=== PATIENT | male | born 1950 | race Caucasian/White ===

== ENCOUNTER 2016-09-16 04:31 | Observation (INO) | payer SELFPAY ==
[~2016-09-16] VITALS: Ht 177.8 cm; Wt 87.5 kg
[2016-09-16] VITALS (9 sets, daily range): BP systolic 94–139; BP diastolic 58–71
[2016-09-16 04:51] LABS: BASO % 0 % (0-3); EOS % 2 % (0-3); HEMATOCRIT 43.9 % (39.0-53.0); HEMOGLOBIN 14.8 g/dL (13.0-17.5); LYMPH # 2.3 x10^3/uL (1.0-4.8); LYMPH % 25 % (24-48); MEAN CORPUSCULAR HEMOGLOBIN 31 pg (25-35); MEAN CORPUSCULAR HGB CONC 34 g/dL (31-37); MEAN CORPUSCULAR VOLUME 91 fL (79-100); MONO % 7 % (0-9); NEUT % 66 % (31-73); PLATELET COUNT 149 x10^3/uL (140-400); RED BLOOD COUNT 4.86 x10^6/uL (4.30-5.70); RED CELL DISTRIBUTION WIDTH 14.7 % (11.5-14.5); WHITE BLOOD COUNT 9.2 x10^3/uL (4.0-11.0)
[2016-09-16] MEDS ORDERED: dilTIAZem IV PUSH 25 MG/5 ML VIAL ONE (04:52)
--- NOTE | 2016-09-16 04:59 | PHYS DOC ---
Past Medical History Past Medical History: Diabetes-Type II, High Cholesterol, Hypertension Past Surgical History: Cholecystectomy, Other Additional Past Surgical Histo: back, Right knee, left foot Alcohol Use: Occasionally Drug Use: None Adult General Chief Complaint Chief Complaint: Palpitations HPI HPI 65 yo M presenting to the ED with palpitations that started about an hour ago. He reports no chest pain but feels a funny heartbeat. He denies shortness of breath or abdominal pain. It happened while he was watching TV. Location chest. Duration constant. No alleviating or exacerbating factors present. Nonradiating. Review of systems is negative for abdominal pain nausea vomiting fevers chills. All other review of systems is negative unless otherwise noted in history of present illness. ED course: 65-year-old male presenting to the emergency department today with palpitations. Triage vital signs showed the patient to have a heart rate around 140. EKG shows A. fib with RVR. Otherwise axis is mildly leftward ST segments are congruent. Not consistent with ACS. Reviewed by myself. Chest x-ray obtained.Chest x-ray reviewed by myself shows no obvious infiltrate or pneumothorax present. No obvious acute cardiopulmonary process present. Blood work obtained. The patient was then admitted to our cardiovascular care unit for IV rate controlling medications and cardiac consultation. Review of Systems Review of Systems SEE ABOVE. Current Medications Current Medications Current Medications Medications (Trade) Dose Ordered Sig/Linda Start Time Stop Time Status Last Admin Dose Admin Aspirin (Children'S Aspirin) 324 mg 1X ONCE 09/16/16 05:00 09/16/16 05:01 DC 09/16/16 04:53 324 MG Diltiazem HCl (Cardizem) 25 mg STK-MED ONCE 09/16/16 04:52 09/16/16 04:53 DC Diltiazem HCl 125 mg/Dextrose 125 ml @ 0 mls/hr CONT PRN 09/16/16 05:00 09/16/16 05:07 5 MLS/HR Insulin Human Regular (NovoLIN R VIAL) 5 unit 1X ONCE 09/16/16 06:00 09/16/16 06:01 Allergies Allergies Allergies Coded Allergies Type Severity Reaction Last Updated Verified Penicillins Allergy Intermediate 09/16/16 Yes Physical Exam Physical Exam SEE ABOVE Constitutional: Well developed, well nourished, no acute distress, non-toxic appearance. [] HENT: Normocephalic, atraumatic, bilateral external ears normal, oropharynx moist, no oral exudates, nose normal. [] Eyes: PERRLA, EOMI, conjunctiva normal, no discharge. [] Neck: Normal range of motion, no tenderness, supple, no stridor. [] Cardiovascular:tachy heart rate w/ regular rhythm, no murmur [] Lungs & Thorax: Bilateral breath sounds clear to auscultation [] Abdomen: Bowel sounds normal, soft, no tenderness, no masses, no pulsatile masses. [] Skin: Warm, dry, no erythema, no rash. [] Back: No tenderness, no CVA tenderness. [] Extremities: No tenderness, no cyanosis, no clubbing, ROM intact, no edema. [] Neurologic: Alert and oriented X 3, normal motor function, normal sensory function, no focal deficits noted. [] Psychologic: Affect normal, judgement normal, mood normal. [] Current Patient Data Vital Signs Vital Signs Date Time Temp Pulse Resp B/P (MAP) Pulse Ox O2 Delivery O2 Flow Rate FiO2 09/16/16 05:00 124 18 127/73 (91) 94 Nasal Cannula 2.0 09/16/16 04:43 97.8 97.8 Lab Values Laboratory Tests Test 09/16/16 04:40 White Blood Count 9.2 x10^3/uL (4.0-11.0) Red Blood Count 4.86 x10^6/uL (4.30-5.70) Hemoglobin 14.8 g/dL (13.0-17.5) Hematocrit 43.9 % (39.0-53.0) Mean Corpuscular Volume 91 fL (79-100) Mean Corpuscular Hemoglobin 31 pg (25-35) Mean Corpuscular Hemoglobin Concent 34 g/dL (31-37) Red Cell Distribution Width 14.7 % (11.5-14.5) H Platelet Count 149 x10^3/uL (140-400) Neutrophils (%) (Auto) 66 % (31-73) Lymphocytes (%) (Auto) 25 % (24-48) Monocytes (%) (Auto) 7 % (0-9) Eosinophils (%) (Auto) 2 % (0-3) Basophils (%) (Auto) 0 % (0-3) Neutrophils # (Auto) 6.1 x10^3uL (1.8-7.7) Lymphocytes # (Auto) 2.3 x10^3/uL (1.0-4.8) Monocytes # (Auto) 0.6 x10^3/uL (0.0-1.1) Eosinophils # (Auto) 0.2 x10^3/uL (0.0-0.7) Basophils # (Auto) 0.0 x10^3/uL (0.0-0.2) Sodium Level 142 mmol/L (136-145) Potassium Level 3.5 mmol/L (3.5-5.1) Chloride Level 104 mmol/L (98-107) Carbon Dioxide Level 27 mmol/L (21-32) Anion Gap 11 (6-14) Blood Urea Nitrogen 13 mg/dL (8-26) Creatinine 0.8 mg/dL (0.7-1.3) Estimated GFR (Cockcroft-Gault) 97.3 Glucose Level 316 mg/dL (70-99) H Calcium Level 9.8 mg/dL (8.5-10.1) Total Bilirubin 0.4 mg/dL (0.2-1.0) Direct Bilirubin 0.1 mg/dL (0.0-0.2) Aspartate Amino Transferase (AST) 15 U/L (15-37) Alanine Aminotransferase (ALT) 27 U/L (16-63) Alkaline Phosphatase 137 U/L (46-116) H Troponin I Quantitative < 0.017 ng/mL (0.000-0.055) XC-Qfl-D-Type Natriuretic Peptide 134 pg/mL (0-124) H Total Protein 7.6 g/dL (6.4-8.2) Albumin 4.0 g/dL (3.4-5.0) Lipase 137 U/L (73-393) Laboratory Tests 09/16/16 04:40 Laboratory Tests 09/16/16 04:40 EKG EKG [] Radiology/Procedures Radiology/Procedures [] Course & Med Decision Making Course & Med Decision Making Pertinent Labs and Imaging studies reviewed. (See chart for details) [] Dragon Disclaimer Dragon Disclaimer This electronic medical record was generated, in whole or in part, using a voice recognition dictation system. Departure Departure Impression: Primary Impression: Atrial fibrillation with RVR Disposition: ADMITTED INPATIENT Admitting Physician: Mathew Martinez Condition: STABLE FAZAL SURESH MD Sep 16, 2016 04:59
[2016-09-16] MEDS ORDERED: ASPIRIN CHEWABLE 81 MG TABLET. PO ONE (05:00)
[2016-09-16] MEDS ORDERED: dilTIAZem IV PUSH 25 MG/5 ML VIAL IVP ONE (05:00)
[2016-09-16 05:11] LABS: CALCIUM 9.8 mg/dL (8.5-10.1); CREATININE 0.8 mg/dL (0.7-1.3); GFR 97.3; POTASSIUM 3.5 mmol/L (3.5-5.1)
[2016-09-16] MEDS ORDERED: ATOR40TA59 PO (05:15)
[2016-09-16] MEDS ORDERED: LISI-334 PO (05:15)
[2016-09-16 05:16] LABS: DIRECT BILIRUBIN 0.1 mg/dL (0.0-0.2); TOTAL BILIRUBIN 0.4 mg/dL (0.2-1.0); TOTAL PROTEIN 7.6 g/dL (6.4-8.2)
[2016-09-16] MEDS ORDERED: GLIM2TAB2 PO (05:16)
[2016-09-16] MEDS ORDERED: AMLO10TA2 PO (05:17)
[2016-09-16] MEDS ORDERED: ALPR0.254 PO (05:17)
[2016-09-16] MEDS ORDERED: ISOS60TA2 PO (05:18)
[2016-09-16] MEDS ORDERED: ASPI81TA50 PO (05:36)
[2016-09-16] MEDS ORDERED: METF-620 PO (05:46)
[2016-09-16] MEDS ORDERED: INSULIN REGULAR 100 UNIT/ML 10ML VIAL. IV ONE (06:00)
--- NOTE | 2016-09-16 07:21 | EKG ---
[facility] [address] [place] [address] Test Date: 2016-09-16 Test Time: 04:38:23 Pat Name: HARDIK MANCILLA Department: Room: 205 1 Gender: M [employer]: : 1950 Requested By: FAZAL SURESH Order Number: [id number] Reading MD: Toro Mojica Measurements Intervals [place] Rate: 145 P: [place]: QRS: 14 QRSD: 68 T: 103 QT: 290 QTc: 453 Interpretive Statements IRREGULAR RHYTHM, NO P-WAVE FOUND RVR ST & T ABNORMALITY, CONSIDER ANTERIOR ISCHEMIA OR LEFT VENTRICULAR STRAIN HIGH LATERAL ISCHEMIA OR LEFT VENTRICULAR STRAIN ABNORMAL ECG RI6.01 No previous ECG available for comparison Electronically Signed On 09-16-2016 15:56:09 CDT by Toro Mojica
--- NOTE | 2016-09-16 07:33 | RAD ---
AP chest radiograph 09/16/2016 Clinical indication: Chest pain. Comparison: None. Findings: Cardiac and mediastinal silhouettes are within normal limits. No pleural effusion, pneumothorax or focal consolidation. Impression: No acute cardiopulmonary abnormality.
[2016-09-16] MEDS ORDERED: ERGO500027 PO (08:28)
--- NOTE | 2016-09-16 10:53 | PDOC2 ---
CARDIAC CONSULT DATE OF CONSULT Date of Consult DATE: 09/16/16 TIME: 10:47 REASON FOR CONSULT Reason for Consult: afib rvr REFERRING PHYSICIAN Referring Physician: cindy SOURCE Source: Chart review, Patient HISTORY OF PRESENT ILLNESS HISTORY OF PRESENT ILLNESS This is a pleasant 65 yo male admitted for complains of palpitations. Reports that as he was watching TV last night his heart started skipping then it started going fast. He told his to check it out and she confirmed it. He took NTG thinking that this may help but it did not. Reports no SOA, dizziness. Upon admission he was noted with AFIB RVR. No prior hx of CAD, arrhythmias. He was started on cardizem drip and his HR is now controlled. No hx CAD, VTA, Fall, injury, bleeding history PAST MEDICAL HISTORY Cardiovascular: HTN, Hyperlipidemia Pulmonary: No pertinent hx CENTRAL NERVOUS SYSTEM: Other (No pertinent history) GI: No pertinent hx Heme/Onc: No pertinent hx Hepatobiliary: No pertinent hx Psych: Anxiety Musculoskeletal: Osteoarthritis Rheumatologic: No pertinent hx, Rheumatoid arthritis Infectious disease: No pertinent hx ENT: No pertinent hx Renal/: No pertinent hx Endocrine: Diabetes (2) Dermatology: No pertinent hx PAST SURGICAL HISTORY Past Surgical History: Cholecystectomy, Hernia Repair (umbilical and inguinal) , Other (back surgery x2, right knee surgeries; right toe surgery ) FAMILY HISTORY Family History: Diabetes (father), Hypertension (father) SOCIAL HISTORY Smoke: 1 pack per day (>40 yrs) ALCOHOL: none Drugs: None Lives: with Family CURRENT MEDICATIONS CURRENT MEDICATIONS Current Medications Medications (Trade) Dose Ordered Sig/Linda Route PRN Reason Start Time Stop Time Status Last Admin Dose Admin Aspirin (Children'S Aspirin) 324 mg 1X ONCE PO 09/16/16 05:00 09/16/16 05:01 DC 09/16/16 04:53 Diltiazem HCl (Cardizem) 20 mg 1X ONCE IVP 09/16/16 05:00 09/16/16 05:01 DC 09/16/16 04:55 Diltiazem HCl 125 mg/Dextrose 125 ml @ 0 mls/hr CONT PRN IV SEE I/O RECORD 09/16/16 05:00 09/16/16 05:07 Insulin Human Regular (NovoLIN R VIAL) 5 unit 1X ONCE IV 09/16/16 06:00 09/16/16 06:01 DC 09/16/16 05:41 ALLERGIES ALLERGIES: Coded Allergies: Penicillins (Verified Allergy, Intermediate, 09/16/16) ROS Review of System 14 point ROS evaluated with pertinent positives noted per HPI PHYSICAL EXAM General: Alert, Oriented X3, Cooperative, No acute distress HEENT: Atraumatic, Mucous membr. moist/pink Lungs: Clear to auscultation, Normal air movement Heart: Normal S1, Normal S2, Other (2/6 systolic murmur to LLS border; AFIB) Abdomen: Soft, No tenderness Extremities: No cyanosis, No edema Skin: No breakdown, No significant lesion Neuro: Normal speech, Sensation intact Psych/Mental Status: Mental status NL, Mood NL MUSCULOSKELETAL: Osteoarthritic changes both hands VITALS VITALS Vital Signs Date Time Temp Pulse Resp B/P (MAP) Pulse Ox O2 Delivery O2 Flow Rate FiO2 09/16/16 07:40 98.1 105 20 120/65 (83) 96 Nasal Cannula 98.1 09/16/16 06:45 2.0 LABS Lab: Laboratory Tests Test 09/16/16 04:40 09/16/16 08:07 White Blood Count 9.2 x10^3/uL (4.0-11.0) Red Blood Count 4.86 x10^6/uL (4.30-5.70) Hemoglobin 14.8 g/dL (13.0-17.5) Hematocrit 43.9 % (39.0-53.0) Mean Corpuscular Volume 91 fL (79-100) Mean Corpuscular Hemoglobin 31 pg (25-35) Mean Corpuscular Hemoglobin Concent 34 g/dL (31-37) Red Cell Distribution Width 14.7 % (11.5-14.5) Platelet Count 149 x10^3/uL (140-400) Neutrophils (%) (Auto) 66 % (31-73) Lymphocytes (%) (Auto) 25 % (24-48) Monocytes (%) (Auto) 7 % (0-9) Eosinophils (%) (Auto) 2 % (0-3) Basophils (%) (Auto) 0 % (0-3) Neutrophils # (Auto) 6.1 x10^3uL (1.8-7.7) Lymphocytes # (Auto) 2.3 x10^3/uL (1.0-4.8) Monocytes # (Auto) 0.6 x10^3/uL (0.0-1.1) Eosinophils # (Auto) 0.2 x10^3/uL (0.0-0.7) Basophils # (Auto) 0.0 x10^3/uL (0.0-0.2) Sodium Level 142 mmol/L (136-145) Potassium Level 3.5 mmol/L (3.5-5.1) Chloride Level 104 mmol/L (98-107) Carbon Dioxide Level 27 mmol/L (21-32) Anion Gap 11 (6-14) Blood Urea Nitrogen 13 mg/dL (8-26) Creatinine 0.8 mg/dL (0.7-1.3) Estimated GFR (Cockcroft-Gault) 97.3 Glucose Level 316 mg/dL (70-99) Calcium Level 9.8 mg/dL (8.5-10.1) Total Bilirubin 0.4 mg/dL (0.2-1.0) Direct Bilirubin 0.1 mg/dL (0.0-0.2) Aspartate Amino Transf (AST/SGOT) 15 U/L (15-37) Alanine Aminotransferase (ALT/SGPT) 27 U/L (16-63) Alkaline Phosphatase 137 U/L (46-116) Troponin I Quantitative < 0.017 ng/mL (0.000-0.055) TP-Drt-C-Type Natriuretic Peptide 134 pg/mL (0-124) Total Protein 7.6 g/dL (6.4-8.2) Albumin 4.0 g/dL (3.4-5.0) Lipase 137 U/L (73-393) Glucose (Fingerstick) 297 mg/dL (70-99) ASSESSMENT/PLAN ASSESSMENT/PLAN 1. New onset AFIB with RVR 2. HTN: low. Apparently pt took all his home meds this am 3. HLP 4. DM2: uncontrolled currently Recommendations 1. TTE, TSH, lipid panel, Mg. 2. DC cardizem drip and will start 180 mg CD po daily tomorrow. Continue with home metoprolol. DC imdur 3. Smoking cessation 4. Start on eliquis (will provide discount cards) DC home norvasc. Possible home tomorrow. 5. Watch for bradycardic episode. 6. Continue with secondary prevention 7. Will arrange for follow up in 3-4 weeks in which at that time he will have his insurance and will arrange for outpt cardioversion. 8. Home BP monitoring. Problems: JADEN PAREKH APRN Sep 16, 2016 10:53
[2016-09-16 11:18] LABS: CHOLESTEROL 167 mg/dL (0-200); HDLC 22 mg/dL (40-60); MAGNESIUM 1.6 mg/dL (1.8-2.4); NON-HDL CHOLESTEROL 145 mg/dL (0-129); TRIGLYCERIDES 593 mg/dL (0-150)
[2016-09-16 11:19] LABS: CHOLESTEROL/HDL RATIO 7.6
[2016-09-16] MEDS ORDERED: OXYC30TA PO (11:35)
[2016-09-16] MEDS ORDERED: HYDR12.53 PO (11:35)
[2016-09-16] MEDS ORDERED: METO100T2 PO (11:35)
[2016-09-16] MEDS ORDERED: ANTI-COAG MONITOR BY PHARMACY. MC PRN (11:45)
[2016-09-16] MEDS: ALPRAZolam 0.25 MG TABLET PO SCH ×2 (12:00→21:00)
--- NOTE | 2016-09-16 12:42 | HP ---
ADMIT DATE: 09/16/2016 CHIEF COMPLAINT: Palpitations. HISTORY OF PRESENT ILLNESS AND HOSPITAL COURSE: This patient is a 65-year-old /____ man, who came to the Emergency Room when he noted palpitations. The patient denied chest pain, shortness of breath, diaphoresis, nausea or vomiting. This came on while at rest watching TV and ____ came to the Emergency Room. During Emergency Room evaluation, he was found to have atrial fibrillation with rapid ventricular response with heart rate of 124. He had a negative cardiac workup and only abnormal lab finding was blood sugar of 316. The patient was placed on a Cardizem drip and rate was controlled and was admitted for rule out protocol and Cardiology consultation. PAST MEDICAL HISTORY: 1. Type 2 diabetes. 2. Hypertension. 3. Hyperlipidemia. 4. Rheumatoid arthritis. 5. Osteoarthritis. 6. Chronic low back and knee pain. MEDICATIONS: On admission are metoprolol 100 b.i.d. Norvasc 10 mg b.i.d., hydrochlorothiazide 12.5 mg every day, lisinopril 20 mg b.i.d., Imdur 60 mg daily, Amaryl 2 mg daily, metformin 1000 b.i.d., Lipitor 40 mg at bedtime, oxycodone 30 mg immediate release q.6 hours p.r.n., Xanax 0.25 mg b.i.d., and vitamin D 50,000 units one p.o. q week. PAST SURGICAL HISTORY: Significant for back surgery x 2, knee surgery x 3, right inguinal hernia x 2, umbilical hernia x 1, cholecystectomy and great toe on the right foot surgery. FAMILY HISTORY: Mother with cancer. His father with complications of diabetes and hypertension. He has a brother who is also . He has strong family history for diabetes and family history of prostate cancer. SOCIAL HISTORY: The patient continues to smoke at least a pack per day for over 44 years. The patient does not use alcohol. The patient is and lives with his spouse. 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 ALLERGIES: THE PATIENT HAS ALLERGIES TO PENICILLIN, WHICH CONSISTENT RASH. REVIEW OF SYSTEMS: The patient denies nausea, vomiting, chest pain, shortness of breath, headaches, cough, congestion, fever or diarrhea. The patient does have palpitations, which ____ the last 24 hours. ASSESSMENT: 1. New onset atrial fibrillation with rapid ventricular response. 2. Suspected underlying chronic obstructive pulmonary disease due to long history of smoking. 3. Type 2 diabetes. 4. Severe hypertension. 5. Hyperlipidemia. 6. Rheumatoid arthritis. 7. Chronic pain with osteoarthritis of the knee and low back. The patient is not obtained regular medical care due to lack of insurance. PLAN: To proceed with Tunde daniels. Cardiology consultation including echocardiogram began anticoagulation and adjust medications as needed and continue to follow the patient throughout hospital stay. GLEN BLACKBURN MD DR: FEDE/ugo JOB#: [id number] / [id number]
[2016-09-16] MEDS ORDERED: MAGNESIUM SULFATE 2GM 50 ML IV ONE (13:00)
--- NOTE | 2016-09-16 13:29 | CARD ---
APPROVED REPORT EXAM: Two-dimensional and M-mode echocardiogram with Doppler and color Doppler. Other Information Quality : Average Rhythm : Atrial Fibrillation INDICATION Atrial Fibrillation 2D DIMENSIONS RVDd3.0 (2.9-3.5cm)Left Atrium(2D)3.5 (1.6-4.0cm) IVSd1.2 (0.7-1.1cm)Aortic Root(2D)2.9 (2.0-3.7cm) LVDd4.2 (3.9-5.9cm)LVOT Diameter2.3 (1.8-2.4cm) PWd1.2 (0.7-1.1cm)LVDs2.6 (2.5-4.0cm) FS (%) 28.7 %SV55.0 ml LVEF(%)59.4 (>50%) Aortic Valve AoV Peak Robert.136.4cm/sAoV VTI22.8cm AO Peak GR.7.4mmHgLVOT Peak Robert.119.0cm/s LVOT VTI 20.37cmAO Mean GR.4mmHg Mitral Valve MV DECEL [id number] MVA (PHT)3.59cm2 Pulmonary Valve PV Peak Mmwtkuac06.6cm/sPV Peak Grad.4mmHg RVOT VTI20.2cm Tricuspid Valve TR P. Ophaxitu595zo/sRAP [id number] TR Peak Gr.84ddCmYQSV34sfWd Pulmonary Vein S1 Nxpbcdps34.3cm/s LEFT VENTRICLE The left ventricle is normal size. There is borderline concentric left ventricular hypertrophy. Left ventricle systolic function is normal. The Ejection Fraction is 55-60%. There is normal LV segmental wall motion. Unable to estimate PA pressure. RIGHT VENTRICLE The right ventricle is normal size. The right ventricular systolic function is normal. ATRIA The left atrium size is normal. The right atrium size is normal. The interatrial septum is intact wit h no evidence for an atrial septal defect or patent foramen ovale as noted on 2-D or Doppler imaging. AORTIC VALVE The aortic valve is mildly calcified. The aortic valve is trileaflet. Doppler and Color Flow revealed no significant aortic regurgitation. There is no significant aortic valvular stenosis. MITRAL VALVE Mitral annular calcification is mild. There is no mitral valve stenosis. Doppler and Color Flow revea led trace to mild mitral regurgitation. TRICUSPID VALVE The tricuspid valve is normal in structure and function. Doppler and Color Flow revealed mild tricusp id regurgitation. The PA pressure was estimated at 31 mmHg. There is no tricuspid valve stenosis. PULMONIC VALVE The pulmonic valve is not well visualized. Doppler and Color Flow revealed no pulmonic valvular regur gitation. There is no pulmonic valvular stenosis. GREAT VESSELS The aortic root is normal in size. Normal pulmonary venous flow (Doppler). The IVC is normal in size and collapses >50% with inspiration. PERICARDIAL EFFUSION There is no evidence of significant pericardial effusion. Critical Notification Critical Value: No <Conclusion> Left ventricle systolic function is normal. The Ejection Fraction is 55-60%. There is normal LV segmental wall motion. Trace to mild mitral regurgitation. Mild tricuspid regurgitation. The PA pressure was estimated at 31 mmHg. There is no evidence of significant pericardial effusion.
[2016-09-16] MEDS: APIXABAN 5 MG TABLET. PO SCH ×2 (14:41→21:11)
[2016-09-16] MEDS: INSULIN ASPART 300 UNITS/3 ML INSULN.PEN SQ SCH ×2 (16:30→21:00)
[2016-09-16] MEDS: ASPIRIN ENTERIC COATED 81 MG TABLET.DR. PO SCH (21:11)
[2016-09-16] MEDS: ATORVASTATIN CALCIUM 40 MG TABLET. PO SCH (21:12)
[2016-09-16] MEDS: METOPROLOL TART IMMED RELEASE 50 MG TABLET. PO SCH (21:15)
[2016-09-17] VITALS (7 sets, daily range): BP systolic 97–143; BP diastolic 62–85
--- NOTE | 2016-09-17 01:37 | ACF ---
Admission Forms Criteria ATRIAL FIBRILLATION Clinical Indications for Admission to Inpatient Care (Place 'X' for any and all applicable criteria): Admission indicated for ANY ONE of the following(1)(2)(3)(4)(5) : [ ]I. Myocardial ischemia [ ]II. Dyspnea or hypoxemia [ ]III. Hemodynamic instability [ ]IV. Heart failure (e.g., pulmonary edema) (7) [X]V. New-onset (less than 48 hours) atrial fibrillation with high risk for causing complications secondary to comorbidities (eg, symptomatic heart failure ) [ ]. Altered mental status [ ]VII. Syncope [ ]VIII. Patient has implantable cardioverter defibrillator that has fired more than once within past 24hr or needs immediate adjustment of settings that cannot be done other than in inpatient setting. (8) [ ]IX. Suspected accessory pathway (e.g., Pynnj-Juzkukmge-Yorhz syndrome) on ECG [ ]X. Recent systemic thromboembolism (eg, stroke) [ ]XI. Medication toxicity (e.g., digitalis) causing arrhythmia(9) [ ]XII. Underlying medical condition that necessitates inpatient care (e.g., thyrotoxicosis, pneumonia) (10) [ ]XIII. Continuous ECG monitoring is required for condition causing arrhythmia (e.g., severe hyperkalemia, hypokalemia, acid-base disturbance).(11)(12)(13) [ ]XIV. Initiation of antiarrhythmic drug therapy is needed in patient at high risk of adverse effects as indicated by ANY ONE of the following: [ ]a) Significant structural heart disease (e.g., reduced ejection fraction, congenital heart disease, valvular heart disease) [ ]b) Prolonged QT interval [ ]c) Underlying sinus node or atrioventricular conduction disturbances [ ]d) Need for treatment with antiarrhythmic drugs that have significant proarrhythmic potential (e.g., dofetilide, sotalol, procainamide) [ ]e) Patient whose sinus rhythm has never been observed on ECG [ ]XV. Intolerable symptoms despite optimal outpatient treatment [ ]XVI. Elective or urgent cardioversion that cannot be performed on outpatient basis or during observation care. [A] (Use also Atrial Fibrillation: Observation Care ) as appropriate.(14) [ ]XVII.Contraindications and/or Inappropriate clinical situations for Observational Care in patients with Atrial Fibrillation, when ANY ONE of the following is required: [ ]a) Patient with High risk of cardiac embolism (e.g, patients with previous cardiac embolism, LVEF < 40%, age >75 and patients with prosthetic valve) 18 [ ]b) Patient with Moderate risk including DM patient, CAD and patient aged 65-75 18 [ ]c) Patient with any change in cardiac biomarker especially troponin should be managed as high risk in an inpatient setting 19 [ ]d) Physician judgement irrespective of ECG and other diagnostic findings 20 [ ]XVIII.General contraindications and/or Inappropriate clinical situations for Observational Care in patients with Atrial Fibrillation, when ANY ONE of the following is required: [ ]a) Prediction of prolongation of LOS based on ANY ONE of the following may be considered as a contraindication for observational care 2, 3, 4, 5, 6, 7, 8, 9, 10, 11 [ ]i) Age > 65 yrs. [ ]ii) Patient arriving by ambulance [ ]iii) Patient with high acuity [ ]iv) Patient requiring vital sign monitoring [ ]v) Patient on IV medication [ ]b) Systolic blood pressures 180mmHg 3,12 [ ]c) Patient with altered mental status including delirium and other alteration of consciousness3 [ ]d) Patient whose discharge disposition will be to a nursing home home or rehabilitation home should not be managed in Emergency Department Observation Unit. CMS rule requires 3 days hospital stay before such placement.3,13 [ ]e) Patient with failure to thrive due to broad array of etiologies 3,16,17 [ ]f) Inability to ambulate 3,14 Extended stay beyond goal length of stay may be needed for (1)(25)(26): [ ]a) Unstable comorbidities [ ]b) Persistently uncontrolled atrial fibrillation or other arrhythmias [ ]c) Acute thromboembolic event (e.g., stroke, limb ischemia) [ ]d) Need for inpatient attainment of full anticoagulation The original [employer] content created by [employer] has been revised. The portions of the content which have been revised are identified through the use of italic text or in bold, and [facility] [employer] has neither reviewed nor approved the modified material. All other unmodified content is copyright [employer]. Please see references footnoted in the original [facility] edition 2016 Admission Criteria Met?: Yes SAUL ROME Sep 17, 2016 01:37
[2016-09-17] MEDS: INSULIN ASPART 300 UNITS/3 ML INSULN.PEN SQ SCH ×4 (07:30→21:00)
[2016-09-17] MEDS ORDERED: LISI-334 PO (08:46)
[2016-09-17] MEDS ORDERED: APIX5TAB PO (08:46)
[2016-09-17] MEDS ORDERED: DILT180C73 PO (08:46)
[2016-09-17] MEDS ORDERED: GLIM2TAB2 PO (08:46)
[2016-09-17] MEDS ORDERED: MAGN400T22 PO (08:46)
[2016-09-17] MEDS: APIXABAN 5 MG TABLET. PO SCH ×2 (08:56→21:30)
[2016-09-17] MEDS: GLIMEPIRIDE 2 MG TABLET. PO SCH (08:57)
[2016-09-17] MEDS: ASPIRIN ENTERIC COATED 81 MG TABLET.DR. PO SCH ×2 (08:57→21:30)
[2016-09-17] MEDS ORDERED: ERGOCALCIFEROL (VITAMIN D2) 50,000 UNIT CAPSULE. PO SCH (09:00)
[2016-09-17] MEDS: ALPRAZolam 0.25 MG TABLET PO SCH ×2 (09:00→21:00)
[2016-09-17] MEDS ORDERED: DIGOXIN IV 500 MCG/2 ML AMPUL. IV ONE (09:30)
[2016-09-17] MEDS: METOPROLOL TART IMMED RELEASE 50 MG TABLET. PO SCH ×2 (09:35→21:31)
[2016-09-17] MEDS: MAGNESIUM OXIDE 400 MG TABLET PO SCH (09:35)
--- NOTE | 2016-09-17 09:43 | PDOC ---
CARDIO Progress Notes Date and Time Date of Service 09/17/2016 Time of Evaluation 0920 Subjective Subjective: No Chest Pain, No shortness of breath, No Palpitations, No Dizziness Vitals Vitals Vital Signs Date Time Temp Pulse Resp B/P (MAP) Pulse Ox O2 Delivery O2 Flow Rate FiO2 09/17/16 08:57 118 120/84 09/17/16 07:00 97.4 19 92 Room Air 97.4 Weight Weight [ ] Input and Output Intake and Output Intake and Output 09/17/16 07:00 Intake Total 540 ml Balance 540 ml Intake Oral 540 ml # Voids 3 Laboratory Labs Laboratory Tests Test 09/16/16 11:53 09/16/16 17:34 09/16/16 20:42 09/17/16 07:37 Glucose (Fingerstick) 195 mg/dL (70-99) 173 mg/dL (70-99) 241 mg/dL (70-99) 226 mg/dL (70-99) Physical Exam HEENT: Neck Supple W Full Motion Chest: Symmetric Heart: S1S2, irregularly irregular Abdomen: Soft N/T Extremities: No Calf Tenderness Neurology: alert, oriented, follow commands Assessment Assessment 1. New onset AFIB: was improved but overnight RVR again. 2. HTN: controlled 3. HLP: uncontrolled, TG 500s 4. DM2: uncontrolled, refusing PRN insulin Recommendations 1. TTE with normal EF and LV systolic function. 2. Continue with home metoprolol and start po cardizem CD 180 mg today. Dig IV x1. 3. Smoking cessation 4. Start on eliquis (will provide 30 day free card and 4 wk sample given) If HR is well controlled this afternoon then may DC 5. Continue statin and will add fenofibrate. Optimize BG control per PCP. Dietitian consult 6. Will arrange for follow up in 3-4 weeks in which at that time he will have his insurance and will arrange for outpt cardioversion. 7. Home BP monitoring 8. BMP, Mg today JADEN PAREKH APRN Sep 17, 2016 09:42
[2016-09-17] MEDS ORDERED: NITROGLYCERIN SUBLINGUAL 0.4 MG BOTTLE OF 25. SL ONE (10:59)
[2016-09-17] MEDS ORDERED: ASPIRIN CHEWABLE 81 MG TABLET. PO ONE (11:00)
[2016-09-17] MEDS: NITROGLYCERIN SUBLINGUAL 0.4 MG BOTTLE OF 25. SL PRN ×2 (11:04→12:37)
[2016-09-17] MEDS: LISINOPRIL 20 MG TABLET PO SCH (11:13)
[2016-09-17 11:21] LABS: CALCIUM 9.3 mg/dL (8.5-10.1); CREATININE 0.7 mg/dL (0.7-1.3); GFR 113.5; MAGNESIUM 1.8 mg/dL (1.8-2.4)
--- NOTE | 2016-09-17 11:34 | EKG ---
[facility] [address] [place] [address] Test Date: 2016-09-17 Test Time: 11:31:19 Pat Name: HARDIK MANCILLA Department: Room: 205 1 Gender: M [employer] Consultant: CHERRI : 1950 Requested By: JADEN PAREKH Order Number: [id number] Reading MD: Ang Cohen Measurements Intervals [place] Rate: 119 P: [place]: QRS: 26 QRSD: 72 T: 12 QT: 310 QTc: 437 Interpretive Statements NON-SPECIFIC ST/T CHANGES ATRIAL FIBRILLATION WITH RVR Electronically Signed On 09-23-2016 15:42:24 CDT by Ang Cohen
--- NOTE | 2016-09-17 13:14 | PDOC ---
PROGRESS NOTES Subjective Subjective Patient's condition improved during early hospitalization this morning patient began having recurrent A. fib with rapid ventricular response now associated with chest pain. Patient was taken off nitroglycerin due to hypotension and now has chest pain leading to the concerned that there may be coronary artery disease therefore cardiology is continuing evaluation and may proceed with stress testing in the a.m. Objective Objective Vital Signs Date Time Temp Pulse Resp B/P (MAP) Pulse Ox O2 Delivery O2 Flow Rate FiO2 09/17/16 12:37 96 165/98 09/17/16 11:00 97.6 19 92 Room Air 97.6 09/16/16 06:45 2.0 Intake and Output 09/17/16 07:00 Intake Total 540 ml Balance 540 ml Intake Oral 540 ml # Voids 3 Physical Exam Abdomen: Normal bowel sounds Heart: Other (irregularly irregular) Extremities: No edema General: Alert Lungs: Clear to auscultation Assessment Assessment Problems Medical Problems: (1) Atrial fibrillation with RVR Status: Acute 1. New onset atrial fibrillation with rapid ventricular response. 2. Chest pain consistent with angina 3. Type 2 diabetes. 4. Severe hypertension. 5. Hyperlipidemia. 6. Rheumatoid arthritis. 7. Chronic pain with osteoarthritis of the knee and low back. 8. Suspected underlying chronic obstructive pulmonary disease due to long history of smoking. Plan Plan of Care Nitroglycerin restarted Treatment with digoxin started Possible stress test in a.m. Comment Review of Relevant I have reviewed the following items rodrigo (where applicable) has been applied. Labs Laboratory Tests Test 09/16/16 04:40 09/16/16 08:07 09/16/16 11:53 09/16/16 17:34 White Blood Count 9.2 x10^3/uL (4.0-11.0) Red Blood Count 4.86 x10^6/uL (4.30-5.70) Hemoglobin 14.8 g/dL (13.0-17.5) Hematocrit 43.9 % (39.0-53.0) Mean Corpuscular Volume 91 fL (79-100) Mean Corpuscular Hemoglobin 31 pg (25-35) Mean Corpuscular Hemoglobin Concent 34 g/dL (31-37) Red Cell Distribution Width 14.7 % (11.5-14.5) Platelet Count 149 x10^3/uL (140-400) Neutrophils (%) (Auto) 66 % (31-73) Lymphocytes (%) (Auto) 25 % (24-48) Monocytes (%) (Auto) 7 % (0-9) Eosinophils (%) (Auto) 2 % (0-3) Basophils (%) (Auto) 0 % (0-3) Neutrophils # (Auto) 6.1 x10^3uL (1.8-7.7) Lymphocytes # (Auto) 2.3 x10^3/uL (1.0-4.8) Monocytes # (Auto) 0.6 x10^3/uL (0.0-1.1) Eosinophils # (Auto) 0.2 x10^3/uL (0.0-0.7) Basophils # (Auto) 0.0 x10^3/uL (0.0-0.2) Sodium Level 142 mmol/L (136-145) Potassium Level 3.5 mmol/L (3.5-5.1) Chloride Level 104 mmol/L (98-107) Carbon Dioxide Level 27 mmol/L (21-32) Anion Gap 11 (6-14) Blood Urea Nitrogen 13 mg/dL (8-26) Creatinine 0.8 mg/dL (0.7-1.3) Estimated GFR (Cockcroft-Gault) 97.3 Glucose Level 316 mg/dL (70-99) Hemoglobin A1c 8.7 % (4.8-5.6) Calcium Level 9.8 mg/dL (8.5-10.1) Magnesium Level 1.6 mg/dL (1.8-2.4) Total Bilirubin 0.4 mg/dL (0.2-1.0) Direct Bilirubin 0.1 mg/dL (0.0-0.2) Aspartate Amino Transf (AST/SGOT) 15 U/L (15-37) Alanine Aminotransferase (ALT/SGPT) 27 U/L (16-63) Alkaline Phosphatase 137 U/L (46-116) Troponin I Quantitative < 0.017 ng/mL (0.000-0.055) OB-Dcu-E-Type Natriuretic Peptide 134 pg/mL (0-124) Total Protein 7.6 g/dL (6.4-8.2) Albumin 4.0 g/dL (3.4-5.0) Triglycerides Level 593 mg/dL (0-150) Cholesterol Level 167 mg/dL (0-200) LDL Cholesterol, Calculated mg/dL (0-100) VLDL Cholesterol, Calculated 119 mg/dL (0-40) Non-HDL Cholesterol Calculated 145 mg/dL (0-129) HDL Cholesterol 22 mg/dL (40-60) Cholesterol/HDL Ratio 7.6 Lipase 137 U/L (73-393) Thyroid Stimulating Hormone (TSH) 2.652 uIU/mL (0.358-3.74) Glucose (Fingerstick) 297 mg/dL (70-99) 195 mg/dL (70-99) 173 mg/dL (70-99) Test 09/16/16 20:42 09/17/16 07:37 09/17/16 10:50 09/17/16 11:10 Glucose (Fingerstick) 241 mg/dL (70-99) 226 mg/dL (70-99) 278 mg/dL (70-99) Sodium Level 138 mmol/L (136-145) Potassium Level 4.0 mmol/L (3.5-5.1) Chloride Level 102 mmol/L (98-107) Carbon Dioxide Level 25 mmol/L (21-32) Anion Gap 11 (6-14) Blood Urea Nitrogen 12 mg/dL (8-26) Creatinine 0.7 mg/dL (0.7-1.3) Estimated GFR (Cockcroft-Gault) 113.5 Glucose Level 308 mg/dL (70-99) Calcium Level 9.3 mg/dL (8.5-10.1) Magnesium Level 1.8 mg/dL (1.8-2.4) Troponin I Quantitative < 0.017 ng/mL (0.000-0.055) Laboratory Tests Test 09/16/16 17:34 09/16/16 20:42 09/17/16 07:37 09/17/16 10:50 Glucose (Fingerstick) 173 mg/dL (70-99) 241 mg/dL (70-99) 226 mg/dL (70-99) Sodium Level 138 mmol/L (136-145) Potassium Level 4.0 mmol/L (3.5-5.1) Chloride Level 102 mmol/L (98-107) Carbon Dioxide Level 25 mmol/L (21-32) Anion Gap 11 (6-14) Blood Urea Nitrogen 12 mg/dL (8-26) Creatinine 0.7 mg/dL (0.7-1.3) Estimated GFR (Cockcroft-Gault) 113.5 Glucose Level 308 mg/dL (70-99) Calcium Level 9.3 mg/dL (8.5-10.1) Magnesium Level 1.8 mg/dL (1.8-2.4) Troponin I Quantitative < 0.017 ng/mL (0.000-0.055) Test 09/17/16 11:10 Glucose (Fingerstick) 278 mg/dL (70-99) Medications Current Medications Aspirin (Children'S Aspirin) 324 mg 1X ONCE PO Last administered on 09/16/16 04:53; Start 09/16/16 at 05:00; Stop 09/16/16 at 05:01; Status DC Diltiazem HCl (Cardizem) 20 mg 1X ONCE IVP Last administered on 09/16/16 04:55 ; Start 09/16/16 at 05:00; Stop 09/16/16 at 05:01; Status DC Diltiazem HCl 125 mg/Dextrose 125 ml @ 0 mls/hr CONT PRN IV SEE I/O RECORD Last administered on 09/16/16 05:07; Start 09/16/16 at 05:00; Stop 09/16/16 at 11: 28; Status DC Diltiazem HCl (Cardizem) 25 mg STK-MED ONCE .ROUTE ; Start 09/16/16 at 04:52; Stop 09/16/16 at 04:53; Status DC Insulin Human Regular (NovoLIN R VIAL) 5 unit 1X ONCE IV Last administered on 09/16/16 05:41; Start 09/16/16 at 06:00; Stop 09/16/16 at 06:01; Status DC Apixaban (Eliquis) 5 mg BID PO Last administered on 09/17/16 08:56; Start at 12:00 Diltiazem HCl (Cardizem 24hr Cd) 180 mg DAILY PO Last administered on 09/17/16 08:57; Start 09/16/16 at 12:00 Info (Anti-Coagulation Monitoring By Pharmacy) 1 each PRN DAILY PRN MC SEE COMMENTS Last administered on 09/17/16 08:38; Start 09/16/16 at 11:45 Alprazolam (Xanax) 0.25 mg BID PO ; Start 09/16/16 at 12:00 Aspirin (Ecotrin) 81 mg BID PO Last administered on 09/17/16 08:57; Start at 21:00 Atorvastatin Calcium (Lipitor) 40 mg QHS PO Last administered on 09/16/16 21:12 ; Start 09/16/16 at 21:00 Ergocalciferol (Vitamin D2) 50,000 unit Fr PO ; Start 09/17/16 at 09:00 Glimepiride (Amaryl) 2 mg DAILY PO Last administered on 09/17/16 08:57; Start 09/17/16 at 09:00 Lisinopril (Prinivil) 20 mg DAILY PO Last administered on 09/17/16 11:13; Start 09/17/16 at 09:00 Metformin HCl (Glucophage) 1,000 mg BIDWMEALS PO ; Start 09/16/16 at 17:00; Stop 09/16/16 at 17:59; Status DC Oxycodone HCl (Roxicodone) 30 mg PRN Q6HRS PRN PO PAIN; Start 09/16/16 at 12:00 Metoprolol Tartrate (Lopressor) 100 mg BID PO Last administered on 09/17/16 09: 35; Start 09/16/16 at 21:00 Insulin Aspart (NovoLOG) 0-12 UNITS QIDACHS SQ ; Start 09/16/16 at 16:30 Magnesium Oxide (Magnesium Oxide) 400 mg DAILY PO Last administered on 09:35; Start 09/17/16 at 09:00 Magnesium Sulfate/ Dextrose 50 ml @ 25 mls/hr 1X ONCE IV Last administered on 09/16/16 14:40; Start 09/16/16 at 13:00; Stop 09/16/16 at 14:59; Status DC Metformin HCl (Glucophage) 1,000 mg BIDWMEALS PO Last administered on 09/16/16 21:22; Start 09/16/16 at 21:00 Digoxin (Lanoxin) 250 mcg 1X ONCE IV Last administered on 09/17/16 09:38; Start 09/17/16 at 09:30; Stop 09/17/16 at 09:31; Status DC Fenofibrate (Lofibra) 54 mg DAILY PO ; Start 09/17/16 at 10:00 Metformin HCl (Glucophage) 1,000 mg 1X ONCE PO Last administered on 09/17/16 09:55; Start 09/17/16 at 10:00; Stop 09/17/16 at 10:01; Status DC Aspirin (Children'S Aspirin) 243 mg 1X ONCE PO Last administered on 09/17/16 11:01; Start 09/17/16 at 11:00; Stop 09/17/16 at 11:01; Status DC Nitroglycerin (Nitrostat) 0.4 mg PRN Q5MIN PRN SL CHEST PAIN Last administered on 09/17/16 12:37; Start 09/17/16 at 11:00 Nitroglycerin (Nitrostat) 0.4 mg STK-MED ONCE SL ; Start 09/17/16 at 10:59; Stop 09/17/16 at 11:00; Status DC Active Scripts Active Reported Oxycodone Hcl 30 Mg Tablet 1 Tab PO PRN Q6HRS PRN Hydrochlorothiazide Capsule (Hydrochlorothiazide) 12.5 Mg Capsule 1 Cap PO DAILY Metoprolol Tartrate 100 Mg Tablet 1 Tab PO BID Vitamin D2 (Ergocalciferol (Vitamin D2)) 50,000 Unit Capsule 1 Cap PO WEEKLY Metformin Hcl 1,000 Mg Tablet 1,000 Mg PO BIDWMEALS Aspir-Low (Aspirin) 81 Mg Tablet.dr 1 Tab PO BID Isosorbide Mononitrate Er (Isosorbide Mononitrate) 60 Mg Tab.er.24h 1 Tab PO DAILY Alprazolam 0.25 Mg Tablet 1 Tab PO BID Amlodipine Besylate 10 Mg Tablet 10 Mg PO BID Glimepiride 2 Mg Tablet 1 Tab PO DAILY Atorvastatin Calcium 40 Mg Tablet 1 Tab PO QHS Lisinopril 20 Mg Tablet 20 Mg PO BID Vitals/I & O Vital Sign - Last 24 Hours 09/16/16 09/16/16 09/16/16 09/16/16 15:00 19:11 20:00 21:15 Temp 97.8 98.1 97.8 98.1 Pulse 78 88 96 Resp 18 18 B/P (MAP) 115/68 (84) 107/67 (80) 118/66 Pulse Ox 92 95 O2 Delivery Room Air Room Air 09/16/16 09/17/16 09/17/16 09/17/16 22:32 02:18 07:00 08:57 Temp 97.9 98.2 97.4 97.9 98.2 97.4 Pulse 98 90 108 118 Resp 18 20 19 B/P (MAP) 139/71 (93) 124/65 (84) 120/84 (96) 120/84 Pulse Ox 95 95 92 O2 Delivery Room Air Room Air Room Air 09/17/16 09/17/16 09/17/16 09/17/16 09:35 09:38 11:00 11:04 Temp 97.6 97.6 Pulse 130 129 101 123 Resp 19 B/P (MAP) 120/84 120/84 134/85 (101) 162/100 Pulse Ox 92 O2 Delivery Room Air 09/17/16 09/17/16 11:13 12:37 Pulse 115 96 B/P (MAP) 134/85 165/98 Intake and Output 09/16/16 09/16/16 09/17/16 15:00 23:00 07:00 Intake Total 540 ml Balance 540 ml GLEN BLACKBURN MD Sep 17, 2016 13:14
--- NOTE | 2016-09-17 13:17 | PDOC ---
Provider Note Provider Note 09/17/2016 1300 Pt reports of left chest pain and was anxious and diaphoretic at that time as well. Troponin normal and EKG AFIB but no significant ST-T wave changes. Apparently pt has not been forthcoming with the description of his symptoms. He told the staff that he has been having chest in the last few days. He was given NGT SL today and extra dose of ASA in which the pain was relieved. With this additional information will restart imdur and plan for MPI tomorrow if pt agrees. JADEN PAREKH APRN Sep 17, 2016 13:17
[2016-09-17] MEDS: FENOFIBRATE 54 MG TABLET. PO SCH (14:04)
[2016-09-17] MEDS: ISOSORBIDE MONONITRATE ER 30 MG TAB.ER.24H PO SCH (17:47)
[2016-09-17] MEDS: ATORVASTATIN CALCIUM 40 MG TABLET. PO SCH (21:32)
[2016-09-18 03:00] VITALS: BP 121/73
[2016-09-18 07:00] VITALS: BP 139/85
[2016-09-18] MEDS ORDERED: REGADENOSON 0.4 MG/5 ML DISP.SYRIN. IV ONE (08:15)
[2016-09-18] MEDS: FENOFIBRATE 54 MG TABLET. PO SCH (09:00)
[2016-09-18] MEDS: METOPROLOL TART IMMED RELEASE 50 MG TABLET. PO SCH (10:20)
[2016-09-18] MEDS: LISINOPRIL 20 MG TABLET PO SCH (10:21)
[2016-09-18] MEDS: ISOSORBIDE MONONITRATE ER 30 MG TAB.ER.24H PO SCH (10:22)
[2016-09-18] MEDS: GLIMEPIRIDE 2 MG TABLET. PO SCH (10:23)
[2016-09-18] MEDS: ALPRAZolam 0.25 MG TABLET PO SCH (10:23)
[2016-09-18] MEDS: APIXABAN 5 MG TABLET. PO SCH (10:23)
[2016-09-18] MEDS: ASPIRIN ENTERIC COATED 81 MG TABLET.DR. PO SCH (10:23)
[2016-09-18] MEDS: MAGNESIUM OXIDE 400 MG TABLET PO SCH (10:24)
[2016-09-18] MEDS: INSULIN ASPART 300 UNITS/3 ML INSULN.PEN SQ SCH ×2 (10:27→12:30)
[2016-09-18 11:00] VITALS: BP 112/69
--- NOTE | 2016-09-18 12:39 | PDOC ---
PROGRESS NOTES Subjective Subjective The patient is feeling better and is walking in the hallway. Objective Objective Vital Signs Date Time Temp Pulse Resp B/P (MAP) Pulse Ox O2 Delivery O2 Flow Rate FiO2 09/18/16 11:00 98.1 84 16 112/69 (83) 95 Nasal Cannula 2.0 98.1 Intake and Output 09/18/16 07:00 Intake Total 500 ml Output Total 300 ml Balance 200 ml Intake Oral 500 ml Output Urine Total 300 ml # Voids 2 # Bowel Movements 1 Physical Exam Abdomen: Normal bowel sounds Heart: Other (is irregularly irregular) General: No acute distress Lungs: Clear to auscultation Assessment Assessment Problems Medical Problems: (1) Atrial fibrillation with RVR Status: Acute 1. New onset AFIB: Weight improved. Continue medical treatment and anticoagulation. 2. HTN: controlled 3. HLP: Statin and fenofibrate. 4. DM2: as per the primary 5. Chest pain. Resolved. MPI today. ECHO with normal LV systolic function. Comment Review of Relevant I have reviewed the following items rodrigo (where applicable) has been applied. Labs Laboratory Tests Test 09/16/16 17:34 09/16/16 20:42 09/17/16 07:37 09/17/16 10:50 Glucose (Fingerstick) 173 mg/dL (70-99) 241 mg/dL (70-99) 226 mg/dL (70-99) Sodium Level 138 mmol/L (136-145) Potassium Level 4.0 mmol/L (3.5-5.1) Chloride Level 102 mmol/L (98-107) Carbon Dioxide Level 25 mmol/L (21-32) Anion Gap 11 (6-14) Blood Urea Nitrogen 12 mg/dL (8-26) Creatinine 0.7 mg/dL (0.7-1.3) Estimated GFR (Cockcroft-Gault) 113.5 Glucose Level 308 mg/dL (70-99) Calcium Level 9.3 mg/dL (8.5-10.1) Magnesium Level 1.8 mg/dL (1.8-2.4) Troponin I Quantitative < 0.017 ng/mL (0.000-0.055) Test 09/17/16 11:10 09/17/16 16:10 09/17/16 21:26 09/18/16 07:56 Glucose (Fingerstick) 278 mg/dL (70-99) 269 mg/dL (70-99) 165 mg/dL (70-99) 221 mg/dL (70-99) Test 09/18/16 11:53 Glucose (Fingerstick) 324 mg/dL (70-99) Laboratory Tests Test 09/17/16 16:10 09/17/16 21:26 09/18/16 07:56 09/18/16 11:53 Glucose (Fingerstick) 269 mg/dL (70-99) 165 mg/dL (70-99) 221 mg/dL (70-99) 324 mg/dL (70-99) Medications Current Medications Aspirin (Children'S Aspirin) 324 mg 1X ONCE PO Last administered on 09/16/16 04:53; Start 09/16/16 at 05:00; Stop 09/16/16 at 05:01; Status DC Diltiazem HCl (Cardizem) 20 mg 1X ONCE IVP Last administered on 09/16/16 04:55 ; Start 09/16/16 at 05:00; Stop 09/16/16 at 05:01; Status DC Diltiazem HCl 125 mg/Dextrose 125 ml @ 0 mls/hr CONT PRN IV SEE I/O RECORD Last administered on 09/16/16 05:07; Start 09/16/16 at 05:00; Stop 09/16/16 at 11: 28; Status DC Diltiazem HCl (Cardizem) 25 mg STK-MED ONCE .ROUTE ; Start 09/16/16 at 04:52; Stop 09/16/16 at 04:53; Status DC Insulin Human Regular (NovoLIN R VIAL) 5 unit 1X ONCE IV Last administered on 09/16/16 05:41; Start 09/16/16 at 06:00; Stop 09/16/16 at 06:01; Status DC Apixaban (Eliquis) 5 mg BID PO Last administered on 09/18/16 10:23; Start at 12:00 Diltiazem HCl (Cardizem 24hr Cd) 180 mg DAILY PO Last administered on 09/18/16 10:21; Start 09/16/16 at 12:00 Info (Anti-Coagulation Monitoring By Pharmacy) 1 each PRN DAILY PRN MC SEE COMMENTS Last administered on 09/17/16 08:38; Start 09/16/16 at 11:45 Alprazolam (Xanax) 0.25 mg BID PO Last administered on 09/18/16 10:23; Start at 12:00 Aspirin (Ecotrin) 81 mg BID PO Last administered on 09/18/16 10:23; Start at 21:00 Atorvastatin Calcium (Lipitor) 40 mg QHS PO Last administered on 09/17/16 21:32 ; Start 09/16/16 at 21:00 Ergocalciferol (Vitamin D2) 50,000 unit Fr PO ; Start 09/17/16 at 09:00 Glimepiride (Amaryl) 2 mg DAILY PO Last administered on 09/18/16 10:23; Start 09/17/16 at 09:00 Lisinopril (Prinivil) 20 mg DAILY PO Last administered on 09/18/16 10:21; Start 09/17/16 at 09:00 Metformin HCl (Glucophage) 1,000 mg BIDWMEALS PO ; Start 09/16/16 at 17:00; Stop 09/16/16 at 17:59; Status DC Oxycodone HCl (Roxicodone) 30 mg PRN Q6HRS PRN PO PAIN; Start 09/16/16 at 12:00 Metoprolol Tartrate (Lopressor) 100 mg BID PO Last administered on 09/18/16 10: 20; Start 09/16/16 at 21:00 Insulin Aspart (NovoLOG) 0-12 UNITS QIDACHS SQ Last administered on 09/18/16 12 :30; Start 09/16/16 at 16:30 Magnesium Oxide (Magnesium Oxide) 400 mg DAILY PO Last administered on 10:24; Start 09/17/16 at 09:00 Magnesium Sulfate/ Dextrose 50 ml @ 25 mls/hr 1X ONCE IV Last administered on 09/16/16 14:40; Start 09/16/16 at 13:00; Stop 09/16/16 at 14:59; Status DC Metformin HCl (Glucophage) 1,000 mg BIDWMEALS PO Last administered on 09/18/16 10:24; Start 09/16/16 at 21:00 Digoxin (Lanoxin) 250 mcg 1X ONCE IV Last administered on 09/17/16 09:38; Start 09/17/16 at 09:30; Stop 09/17/16 at 09:31; Status DC Fenofibrate (Lofibra) 54 mg DAILY PO Last administered on 09/17/16 14:04; Start 09/17/16 at 10:00 Metformin HCl (Glucophage) 1,000 mg 1X ONCE PO Last administered on 09/17/16 09:55; Start 09/17/16 at 10:00; Stop 09/17/16 at 10:01; Status DC Aspirin (Children'S Aspirin) 243 mg 1X ONCE PO Last administered on 09/17/16 11:01; Start 09/17/16 at 11:00; Stop 09/17/16 at 11:01; Status DC Nitroglycerin (Nitrostat) 0.4 mg PRN Q5MIN PRN SL CHEST PAIN Last administered on 09/17/16 12:37; Start 09/17/16 at 11:00 Nitroglycerin (Nitrostat) 0.4 mg STK-MED ONCE SL ; Start 09/17/16 at 10:59; Stop 09/17/16 at 11:00; Status DC Isosorbide Mononitrate (Imdur) 30 mg DAILY PO Last administered on 09/18/16 10: 22; Start 09/17/16 at 14:00 Regadenoson (Lexiscan) 0.4 mg 1X ONCE IV Last administered on 09/18/16 09:14; Start 09/18/16 at 08:15; Stop 09/18/16 at 08:16; Status DC Active Scripts Active Reported Oxycodone Hcl 30 Mg Tablet 1 Tab PO PRN Q6HRS PRN Hydrochlorothiazide Capsule (Hydrochlorothiazide) 12.5 Mg Capsule 1 Cap PO DAILY Metoprolol Tartrate 100 Mg Tablet 1 Tab PO BID Vitamin D2 (Ergocalciferol (Vitamin D2)) 50,000 Unit Capsule 1 Cap PO WEEKLY Metformin Hcl 1,000 Mg Tablet 1,000 Mg PO BIDWMEALS Aspir-Low (Aspirin) 81 Mg Tablet.dr 1 Tab PO BID Isosorbide Mononitrate Er (Isosorbide Mononitrate) 60 Mg Tab.er.24h 1 Tab PO DAILY Alprazolam 0.25 Mg Tablet 1 Tab PO BID Amlodipine Besylate 10 Mg Tablet 10 Mg PO BID Glimepiride 2 Mg Tablet 1 Tab PO DAILY Atorvastatin Calcium 40 Mg Tablet 1 Tab PO QHS Lisinopril 20 Mg Tablet 20 Mg PO BID Vitals/I & O Vital Sign - Last 24 Hours 09/17/16 09/17/16 09/17/16 09/17/16 12:37 15:15 15:43 17:47 Temp 97.6 97.6 Pulse 96 77 91 81 Resp 20 B/P (MAP) 165/98 97/62 (74) 108/79 (89) 136/85 Pulse Ox 94 O2 Delivery Room Air 09/17/16 09/17/16 09/17/16 09/17/16 19:00 20:00 21:31 22:37 Temp 97.5 98.2 97.5 98.2 Pulse 94 92 82 Resp 20 20 B/P (MAP) 143/84 (103) 137/74 124/64 (84) Pulse Ox 96 95 O2 Delivery Room Air Room Air Room Air 09/18/16 09/18/16 09/18/16 09/18/16 03:00 07:00 10:20 10:21 Temp 97.9 97.7 97.9 97.7 Pulse 87 76 116 110 Resp 20 B/P (MAP) 121/73 (89) 139/85 (103) Pulse Ox 96 96 O2 Delivery Room Air Room Air 09/18/16 09/18/16 09/18/16 10:21 10:22 11:00 Temp 98.1 98.1 Pulse 102 118 84 Resp 16 B/P (MAP) 112/69 (83) Pulse Ox 95 O2 Delivery Nasal Cannula O2 Flow Rate 2.0 Intake and Output 09/17/16 09/17/16 09/18/16 15:00 23:00 07:00 Intake Total 500 ml Output Total 300 ml Balance -300 ml 500 ml CHATA SCHAFFER MD Sep 18, 2016 12:39
--- NOTE | 2016-09-18 13:46 | RAD ---
APPROVED REPORT Test Type: Pharmacological Stress Nurse/Tech: Magnus Monterroso RN Test Indications: Chest Pain Cardiac History: see ehr Medications: see ehr Medical History: see ehr Resting ECG: Afib Resting Heart Rate: 98 bpm Resting Blood Pressure: 134/79mmHg Pretest Chest Pain: None Nurse/Tech Notes Lungs CTA, S1, S2 Consent: The procedure was explained to the patient in lay terms. Informed consent was witnessed. Himanshu eout was entered into [employer]. History and Stress Test performed by Gwendolyn LinderNEdmar Pharm. Details Pharmacologic stress testing was performed using 0.4mg per 5ml of regadenoson given intravenously ove r 7-10 seconds. Stress Symptoms No chest pain or symptoms. POST EXERCISE Reason for Termination: Infusion complete Max HR: 160 bpm Max Blood Pressure: 133/66mmHg Blood Pressure response to exercise: Normal blood pressure response during stress. Chest Pain: No. Arrhythmia: No. ST Change: No. INTERPRETATION Stress EKG Conclusion: Resting EKG showed atrial fibrillation with mild nonspecific ST segment change s. The stress EKG showed no significant changes from baseline. No EKG evidence of stress-induced ischemia. Imaging Protocol IMAGE PROTOCOL: Rest Tc-99m/stress Tc-99m 1 day Rest: Stress: Viability: Radiopharm.Tc99m WavaksmqbMm60p Sestamibi Ielr35xLh 33.5mCi Duration 15min. 10min. Img Date 09/18/2016 09/18/2016 Inj-Img [id number]. 60min. Rest Admin Site:IV - Right AntecubitalAdministrator:RT María (R)(N) Stress Admin Site: IV - Right AntecubitalAdministrator: RT María (R)(N) STRESS DATA End Diast. Vol.73.0mlAv. Heart Jqkn960.0bpm End Syst. Vol.23.0mlCO Index BSA0.0L/min Myocardial Lpnm376.0gEject. Alngamxj18.0% Stress Rates Pk. Fill Rate5.83EDV/secLVtime Pk. Fill 145.27msec Pk. Empty Rate6.09ESV/secLVtime Pk. Eject99.40msec 02/16 Pk. Fill1.04EDV/sec Stress Scores Regional WT1.00Summed WT7.00 Regional WM0.00Summed WM0.00 LV Perfusion The stress scans showed no significant defects. The rest scans showed no significant defects. Nuclear imaging shows no reversible ischemia or infarct. Wall Motion Left ventricular systolic function is normal with an ejection fraction of 68%. LV Perf. Quant 17 Seg. SSS1.00 17 Seg. SRS2.00 17 Seg. SDS0.00 Stress Defect Extent (% LAD)0.00Rest Defect Extent (% LAD)0.00Rev. Defect Extent (% LAD)0.00 Stress Defect Extent (% LCX) 5.00Rest Defect Extent (% LCX)5.00Rev. Defect Extent (% LCX)0.00 Stress Defect Extent (% RCA)0.00Rest Defect Extent (% RCA)0.00Rev. Defect Extent (% RCA)0.00 Stress Defect Extent (% BRIAN)2.80Rest Defect Extent (% BRIAN)2.60Rev. Defect Extent (% BRIAN)0.00 Conclusion 1. No EKG evidence of stress-induced ischemia. 2. Nuclear images showed no reversible ischemia or infarct. 3. Normal left ventricular systolic function with an ejection fraction of 68%. 4. Low risk Lexiscan nuclear stress test.
[2016-09-18] MEDS ORDERED: ISOS30TA4 PO (14:16)
--- NOTE | 2016-09-18 14:25 | PDOC3 ---
Discharge Summary [facility] Date of Admission: Sep 16, 2016 Discharge Date: Sep 18, 2016 Admitting Diagnosis atrial fibrillation with RVR Problems: Final Diagnosis Problems Medical Problems: (1) Atrial fibrillation with RVR Status: Acute CONSULTS McSweyn, cardiology Procedures stress MPI Brief Hospital Course Mr. Degroot is a 65 old who presented with new onset atrial fibrillation with rapid ventricular response, Chest pain consistent with angina, stable Type 2 diabetes, Severe hypertension, chronic Hyperlipidemia, chronic stable Rheumatoid arthritis, stable but Chronic pain with osteoarthritis of the knee and low back, Suspected underlying chronic obstructive pulmonary disease due to long history of smoking. He converted with Cardizem, his meds were adjusted for BP and chest pain control, he had a low risk myocardial perfusion study and is released home and cardiac f/u is arranged Problems: CONDITION AT DISCHARGE: Improved, Stable Diet cardiac, diabetic Scheduled Alprazolam (Alprazolam), 1 TAB PO BID, (Reported) Amlodipine Besylate (Amlodipine Besylate), 10 MG PO BID, (Reported) Aspirin (Aspir-Low), 1 TAB PO BID, (Reported) Atorvastatin Calcium (Atorvastatin Calcium), 1 TAB PO QHS, (Reported) Ergocalciferol (Vitamin D2) (Vitamin D2), 1 CAP PO WEEKLY, (Reported) Glimepiride (Glimepiride), 1 TAB PO DAILY, (Reported) Hydrochlorothiazide (Hydrochlorothiazide Capsule ), 1 CAP PO DAILY, (Reported ) Isosorbide Mononitrate (Isosorbide Mononitrate Er), 1 TAB PO DAILY, (Reported) Lisinopril (Lisinopril), 20 MG PO BID, (Reported) Metformin Hcl (Metformin Hcl), 1,000 MG PO BIDWMEALS, (Reported) Metoprolol Tartrate (Metoprolol Tartrate), 1 TAB PO BID, (Reported) Scheduled PRN Oxycodone Hcl (Oxycodone Hcl), 1 TAB PO PRN Q6HRS PRN for PAIN, (Reported) Shameka HENDERSON MD Sep 18, 2016 14:25
== END 2016-09-18 16:26 | disposition home or self-care (01) ==
LOC: ER 04:31 → INTOOBSV 05:13 → 2 NORTH 05:13
PROVIDERS: ADMIT Family Medicine; ATTEND Family Medicine
DX: I48.91 Unspecified atrial fibrillation (principal); I20.9 Angina pectoris, unspecified; E11.65 Type 2 diabetes mellitus with hyperglycemia; E78.5 Hyperlipidemia, unspecified; M06.9 Rheumatoid arthritis, unspecified; I10 Essential (primary) hypertension; G89.29 Other chronic pain; F17.210 Nicotine dependence, cigarettes, uncomplicated; F41.9 Anxiety disorder, unspecified; E78.00 Pure hypercholesterolemia, unspecified; M17.9 Osteoarthritis of knee, unspecified; Z80.42 Family history of malignant neoplasm of prostate; Z83.3 Family history of diabetes mellitus; Z82.49 Family history of ischemic heart disease and other diseases of the circulatory system
CPT/HCPCS: 36415; 71010; 78452; 80048; 80061; 80076; 82962; 83036; 83690; 83735; 83880; 84443; 84484; 85027; 93005; 93017; 93306; 96365; 96366; 96367; 96372; 96375; 99285; A9500; G0378; J1160; J1815; J2785; J3490; J7060; 96374; 96376; G0379

== ENCOUNTER → 2017-07-20 | Day surgery (SDC) | payer BC ==
[~2017-07-20] MED LIST: LIDOCAINE 1% PF 2 ML VIAL. ID; MIDAZOLAM HCL/PF 2 MG/2 ML VIAL. IV; PROPOFOL 40 ML IV; fentaNYL PF VIAL 100 MCG/2 ML VIAL IV
[2017-07-20] MEDS: IV RINGERS,LACTATED 1000ML 1,000 ML IV (06:48)
== END | disposition home or self-care (01) ==
LOC: SURG 06:10
DX: Z12.11 Encounter for screening for malignant neoplasm of colon (principal); Z86.010 Personal history of colon polyps; K64.0 First degree hemorrhoids; I10 Essential (primary) hypertension; E78.5 Hyperlipidemia, unspecified; E11.9 Type 2 diabetes mellitus without complications; J43.9 Emphysema, unspecified; Z90.49 Acquired absence of other specified parts of digestive tract; Z98.890 Other specified postprocedural states; Z88.0 Allergy status to penicillin; Z79.82 Long term (current) use of aspirin; Z79.899 Other long term (current) drug therapy; Z79.84 Long term (current) use of oral hypoglycemic drugs; F17.200 Nicotine dependence, unspecified, uncomplicated; E78.00 Pure hypercholesterolemia, unspecified; I48.91 Unspecified atrial fibrillation; F41.9 Anxiety disorder, unspecified; Z72.89 Other problems related to lifestyle
CPT/HCPCS: 45378; J2704

== ENCOUNTER → 2017-11-09 | Outpatient (CLI) | payer BC ==
[2017-07-20 07:45] VITALS: BP 191/88
[~2017-11-09] MED LIST changes: +ALPR0.254 PO; +AMLO10TA6 PO; +APIX5TAB PO; +ASPI81TA50 PO; +ATOR40TA59 PO; +DILT180C79 PO; +ERGO500027 PO; +GLIM2TAB2 PO; +HYDR12.53 PO; +ISOS30TA4 PO; +ISOS60TA2 PO; -LIDOCAINE 1% PF 2 ML VIAL. ID; +LISI-334 PO; +MAGN400T22 PO; +METF10007 PO; +METO100T7 PO; -MIDAZOLAM HCL/PF 2 MG/2 ML VIAL. IV; +OXYC30TA PO; -PROPOFOL 40 ML IV; -fentaNYL PF VIAL 100 MCG/2 ML VIAL IV
--- NOTE | 2017-11-09 14:24 | RAD ---
Examination: CT pelvis without contrast HISTORY: History of right groin pain COMPARISON: 05/27/2011 TECHNIQUE: Axial CT images of the pelvis were performed without contrast. Coronal and sagittal reformats are performed. Exposure: One or more of the following individualized dose reduction techniques were utilized for this examination: 1. Automated exposure control 2. Adjustment of the mA and/or kV according to patient size 3. Use of iterative reconstruction technique FINDINGS: Feces and gas noted in the colon. Urinary bladder is mildly distended. Small benign-appearing lymph nodes identified in the bilateral inguinal region. Small fat-containing proximal right inguinal hernia. The prostate is mildly enlarged. Mild degenerative changes lower lumbar spine. IMPRESSION: Small fat-containing proximal right inguinal hernia. Otherwise unremarkable exam. Electronically signed by: Harpreet Crawley MD (11/09/2017 2:20 PM) [id number]
== END | disposition home or self-care (01) ==
LOC: CT 11:14
PROVIDERS: ATTEND Surgery
DX: K40.90 Unilateral inguinal hernia, without obstruction or gangrene, not specified as recurrent (principal); N40.0 Benign prostatic hyperplasia without lower urinary tract symptoms
CPT/HCPCS: 72192

== ENCOUNTER → 2017-11-09 | Outpatient (CLI) | payer BC ==
[2017-07-20 07:45] VITALS: BP 191/88
--- NOTE | 2017-11-09 15:37 | RAD ---
Examination: RIGHT LOWER QUANDRANT History: RT INGUINAL PAIN, prior inguinal hernia repairs in 2016 and 2017 Comparison/Correlation: None Findings: Ultrasound imaging of the right groin region was performed. The left groin region was also imaged for purposes of comparison. At the right groin region, there is a hypoechoic structure measuring 3 cm in maximum diameter. No corresponding finding involving the left groin is evident. There is no significant flow identified within or about the structure. No fluid collections evident. Impression: Small right groin inguinal hernia is suspected. Electronically signed by: Alex Huertas MD (11/09/2017 3:33 PM) [facility]
== END | disposition home or self-care (01) ==
LOC: US 10:25
PROVIDERS: ATTEND Family Medicine
DX: R10.31 Right lower quadrant pain (principal); Z98.890 Other specified postprocedural states
CPT/HCPCS: 93975

== ENCOUNTER → 2018-03-06 | Outpatient (CLI) | payer BC ==
[2018-02-11 12:12] VITALS: BP 155/67
[~2018-03-06] MED LIST changes: +FLEC100T PO; -HYDR12.53 PO; +HYDR12.575 PO; +LISI10TA2 PO; -OXYC30TA PO; +OXYC30TA3 PO
--- NOTE | 2018-03-06 10:23 | CARD ---
MR#: [id number] Date of Study: 03/06/2018 Ordering Physician: CHATA SCHAFFER, Referring Physician: CHATA SCHAFFER, Tech: Meagan Vaughan RDCS APPROVED REPORT EXAM: Two-dimensional and M-mode echocardiogram with Doppler and color Doppler. Other Information Quality : AverageHR: 70bpm Rhythm : NSR INDICATION Atrial Fibrillation 2D DIMENSIONS RVDd3.1 (2.9-3.5cm)Left Atrium(2D)3.5 (1.6-4.0cm) IVSd1.4 (0.7-1.1cm)Aortic Root(2D)3.1 (2.0-3.7cm) LVDd4.7 (3.9-5.9cm)LVOT Diameter2.1 (1.8-2.4cm) PWd1.0 (0.7-1.1cm)LVDs3.3 (2.5-4.0cm) FS (%) 28.9 %SV55.7 ml LVEF(%)55.6 (>50%) M-Mode DIMENSIONS Left Atrium(MM)3.51 (2.5-4.0cm)Aortic Root3.35 (2.2-3.7cm) Aortic Valve AoV Peak Robert.139.6cm/sAoV VTI32.9cm AO Peak GR.7.8mmHgLVOT Peak Robert.108.1cm/s AO Mean GR.4mmHgAVA (VMAX)2.73cm2 YANIV (VTI)2.70cm2 Mitral Valve MV E Iyapgduo95.7cm/sMV E Peak Gr.4mmHg MV DECEL [id number] A Vatnvcjf14.7cm/s MV E Mean Gr.2mmHgE/A Ratio1.0 MV A Uocqibna764cr Pulmonary Valve PV Peak Xdertpaa34.2cm/s Tricuspid Valve TR P. Mahnilfp001ae/sRAP VFACCPIU9mwWb TR Peak Gr.19gcEyUTAZ32fgMm Pulmonary Vein S1 Wgltupvi49.8cm/sD2 Yrqfavyl41.7cm/s PVa pviqxdyq630xqrs LEFT VENTRICLE The left ventricle is normal size. Proximal septal thickening is noted. The left ventricular systolic function is normal and the ejection fraction is within normal range. The Ejection Fraction is 55-60% . There is normal LV segmental wall motion. Transmitral Doppler flow pattern is Grade II-pseudonormal filling dynamics. RIGHT VENTRICLE The right ventricle is normal size. There is normal right ventricular wall thickness. The right ventr icular systolic function is normal. ATRIA The left atrium size is normal. The right atrium size is normal. The interatrial septum is intact wit h no evidence for an atrial septal defect or patent foramen ovale as noted on 2-D or Doppler imaging. AORTIC VALVE The aortic valve is normal in structure and function. Doppler and Color Flow revealed no significant aortic regurgitation. There is no significant aortic valvular stenosis. MITRAL VALVE The mitral valve is normal in structure and function. There is no evidence of mitral valve prolapse. There is no mitral valve stenosis. Doppler and Color-flow revealed mild mitral regurgitation. TRICUSPID VALVE The tricuspid valve is normal in structure and function. Doppler and Color Flow revealed trace tricus pid regurgitation. There is mild pulmonary hypertension. The PA pressure was estimated at 40 mmHg. Th ere is no tricuspid valve prolapse or vegetation. PULMONIC VALVE Pulmonic valve not well visualized. GREAT VESSELS The aortic root is normal in size. The ascending aorta is normal in size. The IVC is normal in size a nd collapses >50% with inspiration. PERICARDIAL EFFUSION There is no evidence of significant pericardial effusion. Critical Notification Critical Value: No <Conclusion> The left ventricular systolic function is normal and the ejection fraction is within normal range. Th e Ejection Fraction is 55-60%. There is normal LV segmental wall motion. Doppler and Color Flow revealed trace tricuspid regurgitation. There is mild pulmonary hypertension. The PA pressure was estimated at 40 mmHg. Signed by : Ang Cohen, Electronically Approved : 03/06/2018 10:21:13
== END | disposition home or self-care (01) ==
LOC: ECHO 08:39
PROVIDERS: ATTEND Internal Medicine Cardiovascular Disease
DX: I27.20 Pulmonary hypertension, unspecified (principal); I34.0 Nonrheumatic mitral (valve) insufficiency; I48.0 Paroxysmal atrial fibrillation
CPT/HCPCS: 93306

== ENCOUNTER → 2019-02-19 | Outpatient (CLI) | payer BC ==
[2018-02-11 12:12] VITALS: BP 155/67
[~2019-02-19] MED LIST changes: -AMLO10TA6 PO; +AMLO10TA8 PO; -GLIM2TAB2 PO; +GLIM2TAB7 PO
--- NOTE | 2019-02-19 15:02 | KCIC ---
EXAM: Right lower extremity arterial Doppler sonogram. HISTORY: Pain. Claudication. Diabetes. Smoking history. TECHNIQUE: Shanks scale and color Doppler sonographic imaging of the right lower extremity arteries with spectral waveform analysis was performed. COMPARISON: None. FINDINGS: There is severe atherosclerotic plaque throughout the right lower extremity arteries. There are associated diminished monophasic waveforms and decreased peak systolic velocities throughout the right lower extremity arteries. No occlusion is seen. IMPRESSION: Severe atherosclerotic plaque with associated abnormal waveforms throughout the right lower extremity, consistent with hemodynamically significant stenosis. No occlusion is seen. Electronically signed by: Darlene Turner MD (02/19/2019 2:59 PM) [place] [id number]
== END | disposition home or self-care (01) ==
LOC: KCIC US 12:30
PROVIDERS: ATTEND Family Medicine
DX: I70.211 Atherosclerosis of native arteries of extremities with intermittent claudication, right leg (principal)
CPT/HCPCS: 93926

== ENCOUNTER → 2019-03-06 | Outpatient (CLI) | payer BC ==
[2018-02-11 12:12] VITALS: BP 155/67
[~2019-03-06] MED LIST changes: +IOHEXOL 350 MG/ML 100 ML VIAL. IV ONE
[2019-03-06 09:21] LABS: CREATININE 0.8 mg/dL (0.7-1.3); GFR 96.4
--- NOTE | 2019-03-07 13:20 | RAD ---
Examination: CT ANGIO ABD ILEO/FEMOR RUNOFF History: Claudication, atherosclerotic plaque Comparison/Correlation: 05/27/2011 CT abdomen and pelvis without contrast and 10/26/2012 CT abdomen without contrast exam Findings: Axial images of the arterial vasculature from the lower thoracic level to the distal toes was imaged following IV contrast according to arteriography protocol. Sagittal and coronal reformatted images were provided. Maximum intensity projection images were provided. 3-D volume rendered images of the arterial vasculature were provided. Right lower lung nodule which is only partially imaged measures 1.4 cm x 1.9 cm. It is not evident on the prior CT exams but this level within the thorax may not have been included. Visualized aorta and branches Diffuse moderate quantity of atheromatous involvement of the abdominal aorta is present. Infrarenal abdominal aortic aneurysm of 2.8 cm transverse diameter noted. Mild stenosis of the proximal celiac artery is evident without atherosclerotic calcific involvement. Superior mesenteric artery is widely patent. Extensive plaque involving the inferior mesenteric artery proximally is noted with no opacification with contrast. Right and left main arteries are widely patent. Left superior aberrant renal artery supplying the interpolar region opacifies with contrast without significant stenosis. Iliac arterial vasculature Atheromatous involvement of the iliac arteries is noted. Atheromatous involvement is circumferentially evident within the right common iliac artery. Moderate quantity of atherosclerotic calcific plaque involves the left common iliac artery. Significant plaque at the distal left common iliac artery is present with high-grade stenosis of approximately 85 percent. Plaque extends to the left external iliac artery origin with approximately 85 percent stenosis. Approximately 50 percent stenosis of the left internal iliac artery origin noted. Right lower extremity arterial vasculature Right common femoral arterial plaque is notable and focal best seen on coronal image 25 of series 6 with 90 percent stenosis evident. Extensive plaque otherwise also seen involving the right common femoral artery. Diffuse atheromatous involvement of the right superficial femoral artery noted. Focal high-grade stenosis of approximately 80 percent is noted involving the distal right superficial femoral artery best seen on image 31 of coronal series 6. Focal high-grade stenosis involving the right popliteal artery as seen on coronal image 36 of series 6 is present with stenosis of 50 percent. Narrowing of the right tibial peroneal trunk is evident. Flow is present within the right calf arterial vasculature. Left lower extremity arterial vasculature Diffuse atheromatous involvement of the left common femoral artery is present. Atheromatous involvement extending into the superficial femoral artery is also evident. Up to 75 percent stenosis involving the mid to distal left superficial femoral artery is noted best seen on axial image 801 of series 5. Popliteal artery is patent. Flow is present within the left calf arterial vasculature. Nonarterial anatomic structures Right hepatic lobe 1.1 cm diameter hypervascularity is noted on axial image 85 of indeterminate significance. This may represent transient hepatic attenuation difference. Reflux of contrast into the hepatic veins noted. Spleen and pancreas are unremarkable. Left adrenal gland low-attenuation nodule with Hounsfield units of 34 on arterial phase imaging is present and new since the prior exam. Right adrenal gland is normal. Bilateral renal cysts are present. The right renal interpolar region 1.3 cm diameter structure with Hounsfield units of 72 noted. It is well marginated. Urinary bladder is unremarkable. The bowel is unremarkable. Cholecystectomy is evident. No ascites or pelvic free fluid. Radiopaque density involving the left first digit proximal phalanx is noted. Correlate with surgical history. Bony structures are grossly unremarkable. Impression: Indeterminate right lower lobe pulmonary nodule. Further evaluation with CT of the chest with contrast is recommended for more complete assessment as neoplastic etiology is not excluded. Indeterminate left adrenal lesion which may represent a benign adenoma. Indeterminate right renal lesion which may represent a hemorrhagic cyst. CT without with contrast is recommended to further assess. Infrarenal abdominal aortic aneurysm of 2.8 cm diameter. Inferior mesenteric arterial occlusion. High-grade stenosis involving the distal left common iliac artery and left external iliac artery origin. High-grade stenoses involving the bilateral superficial femoral arteries. Diffuse atheromatous involvement involving arterial vasculature is present in addition to the regions of high-grade stenoses described above. PQRS Compliance Statement: One or more of the following individualized dose reduction techniques were utilized for this examination: 1. Automated exposure control 2. Adjustment of the mA and/or kV according to patient size 3. Use of iterative reconstruction technique Electronically signed by: Alex Huertas MD (03/07/2019 1:17 PM) [facility]
== END | disposition home or self-care (01) ==
LOC: CT 09:09
PROVIDERS: ATTEND Family Medicine
DX: I70.213 Atherosclerosis of native arteries of extremities with intermittent claudication, bilateral legs (principal); I71.4 Abdominal aortic aneurysm, without rupture; I77.4 Celiac artery compression syndrome; K55.1 Chronic vascular disorders of intestine; K55.069 Acute infarction of intestine, part and extent unspecified; N28.1 Cyst of kidney, acquired
CPT/HCPCS: 36415; 75635; 82565; 84520; Q9967

== ENCOUNTER → 2019-03-13 | Outpatient (CLI) | payer BC ==
[2018-02-11 12:12] VITALS: BP 155/67
[~2019-03-13] MED LIST changes: +IOHEXOL 300 MG/ML 100ML VIAL. IV ONE; -IOHEXOL 350 MG/ML 100 ML VIAL. IV ONE
--- NOTE | 2019-03-13 11:43 | RAD ---
CT CHEST WO/W CONTRAST INDICATION: Lung mass. Comparison: CT abdomen 03/06/2019. TECHNIQUE: Before and after the uneventful administration of intravenous contrast, 75 cc Omnipaque 300, axial CT sections were obtained through the lungs and upper abdomen. Multiplanar reconstructions and MIP images were obtained. RS compliance statement: One or more of the following individualized dose reduction techniques were utilized for this examination: 1. Automated exposure control 2. Adjustment of the mA and/or kV according to patient size 3. Use of iterative reconstruction technique FINDINGS: Lungs and Airways: Right lower lobe solid pulmonary nodule measuring 2.3 x 1.9 cm (series 12 image 216). Several additional smaller solid pulmonary nodules with territory sales representative nodules as follows: Left lower lobe solid pulmonary nodule measuring 0.9 cm (image 199), left upper lobe solid pulmonary nodule measuring 0.7 cm (137) and right lower lobe solid nodule measuring 0.4 cm (image 246). Diffuse bilateral mid and upper lung predominant centrilobular groundglass nodules. Mild centrilobular emphysema. Pleura: The pleural spaces are normal. Heart and Mediastinum: The visualized thyroid is normal in size and attenuation. No axillary or supraclavicular lymphadenopathy. No mediastinal lymphadenopathy. Enlarged left hilar lymph node measures 1.2 cm. Right hilar calcified lymph node consistent with remote granulomatous disease. Normal cardiac size. No pericardial effusion. Coronary artery atherosclerotic disease. Atherosclerosis of the thoracic aorta and branch vessels. Abdomen: Please see recent CT abdomen report for evaluation of the abdominal structures. Bones and Soft Tissues: Degenerative changes of the spine. No aggressive lytic or blastic osseous lesions. IMPRESSION: 1. Multiple bilateral pulmonary nodules with dominant right lower lobe nodule measuring up to 2.3 cm. Findings are concerning for a neoplastic process such as primary lung cancer and/or metastatic disease, although some atypical/fungal infections might have a similar appearance. Recommend three-month follow-up chest CT to assess stability. Alternatively, PET/CT and/or tissue sampling could be considered. 2. Bilateral mid and upper lung centrilobular groundglass nodules, likely infectious bronchiolitis or respiratory bronchiolitis (if patient has history of smoking). 3. Enlarged left hilar lymph node, which may be reactive or potentially represent metastatic disease. Attention on follow-up imaging. No mediastinal lymphadenopathy. Electronically signed by: Geo Brown MD (03/13/2019 11:40 AM) [facility] [place]
== END | disposition home or self-care (01) ==
LOC: CT 09:01
PROVIDERS: ATTEND Family Medicine
DX: J43.2 Centrilobular emphysema (principal); I25.10 Atherosclerotic heart disease of native coronary artery without angina pectoris; I70.0 Atherosclerosis of aorta; R91.8 Other nonspecific abnormal finding of lung field
CPT/HCPCS: 71270

== ENCOUNTER 2019-03-27 06:42 | Outpatient (CLI) | payer BC ==
[~2019-03-27] VITALS: Ht 177.8 cm; Wt 90.7 kg
[2019-03-27] VITALS (19 sets, daily range): BP systolic 141–178; BP diastolic 64–87
[~2019-03-27 06:42] MED LIST changes: -IOHEXOL 300 MG/ML 100ML VIAL. IV ONE
[2019-03-27] MEDS ORDERED: ALPR0.5T6 PO (07:27)
[2019-03-27] MEDS ORDERED: FEXO180T81 PO (07:27)
[2019-03-27] MEDS ORDERED: GLIM4TAB8 PO (07:27)
[2019-03-27] MEDS ORDERED: ESCITALOPRAM OX10 MG PO (07:27)
[2019-03-27] MEDS ORDERED: LISI1TAB23 PO (07:27)
[2019-03-27] MEDS ORDERED: PIOG30TA41 PO (07:27)
[2019-03-27 07:53] LABS: BASO # 0.1 x10^3/uL (0.0-0.2); BASO % 1 % (0-3); EOS # 0.1 x10^3/uL (0.0-0.7); EOS % 2 % (0-3); HEMATOCRIT 44.6 % (39.0-53.0); HEMOGLOBIN 14.8 g/dL (13.0-17.5); LYMPH # 1.9 x10^3/uL (1.0-4.8); LYMPH % 24 % (24-48); MEAN CORPUSCULAR HEMOGLOBIN 30 pg (25-35); MEAN CORPUSCULAR HGB CONC 33 g/dL (31-37); MEAN CORPUSCULAR VOLUME 89 fL (79-100); MONO # 0.6 x10^3/uL (0.0-1.1); MONO % 8 % (0-9); NEUT # 5.1 x10^3/uL (1.8-7.7); NEUT % 65 % (31-73); PLATELET COUNT 133 x10^3/uL (140-400); RED BLOOD COUNT 5.02 x10^6/uL (4.30-5.70); RED CELL DISTRIBUTION WIDTH 15.5 % (11.5-14.5); WHITE BLOOD COUNT 7.8 x10^3/uL (4.0-11.0)
[2019-03-27 08:03] LABS: PROTHROMBIN TIME PATIENT 11.8 SEC (11.7-14.0)
[2019-03-27] MEDS ORDERED: LIDOCAINE WITH 8.4% SOD BICARB 3 ML DISP.SYRIN. ONE (08:04)
[2019-03-27] MEDS ORDERED: MIDAZOLAM HCL/PF 2 MG/2 ML VIAL. ONE (08:26)
[2019-03-27] MEDS ORDERED: fentaNYL PF VIAL 100 MCG/2 ML VIAL ONE (08:26)
[2019-03-27 08:45] LABS: CREATININE 0.8 mg/dL (0.7-1.3); GFR 96.4; POTASSIUM 3.5 mmol/L (3.5-5.1)
[2019-03-27] MEDS ORDERED: fentaNYL PF VIAL 100 MCG/2 ML VIAL IV ONE (08:45)
[2019-03-27] MEDS ORDERED: MIDAZOLAM HCL/PF 2 MG/2 ML VIAL. IV ONE (08:45)
[2019-03-27] MEDS ORDERED: LIDOCAINE WITH 8.4% SOD BICARB 3 ML DISP.SYRIN. IJ ONE (08:45)
--- NOTE | 2019-03-27 12:24 | RAD ---
EXAM: CHEST 1 VIEW History: Lung biopsy COMPARISON: CT chest same day exam Findings/ impression: Low lung volumes and technique accentuates heart size and pulmonary vascularity. The opacity seen in the right lung base on the CT scan is not clearly evident on the radiograph. No evidence of pneumothorax. Electronically signed by: Harpreet Crawley MD (03/27/2019 12:21 PM) [facility] [place]
--- NOTE | 2019-03-27 12:50 | NUR ---
Discharge Note: JULIA MANCILLA Discharge instructions and discharge home medications reviewed with Patient and spouse; and a copy given. All questions have been answered and understanding verbalized. The following instructions and handouts were given: Lung biopsy and post moderate sedation. Discontinued lines and drains: Left FA Iv dc'd and tip intact. Patient discharged to home with via car.
--- NOTE | 2019-03-28 10:57 | RAD ---
CT-guided biopsy, right lower lobe nodule 03/28/2019 Indication: Right Lung Mass, long-term smoker Discussion: The risks and benefits of the procedure, including but not limited to, bleeding, pneumothorax, and infection were discussed patient. Informed consent was obtained. The patient was brought to the CT scanner.. A timeout procedure was performed. CT imaging redemonstrates right basilar lung nodule. The right chest was prepped and draped using sterile barrier technique. 1% lidocaine was administered the overlying skin and subcutaneous tissues. Under intermittent CT guidance a 17-gauge needle was advanced into the nodule. Multiple core biopsies were obtained. [place] were removed. Manual pressure was held. No pneumothorax or other immediate complication was seen. The procedure was performed under conscious sedation including continuous cardiopulmonary monitoring via a dedicated sedation nurse. Gdit-ck-afrl sedation time was 25 minutes Impression: CT-guided biopsy, right lower lobe pulmonary nodule. PQRS Compliance Statement: One or more of the following individualized dose reduction techniques were utilized for this examination: 1. Automated exposure control 2. Adjustment of the mA and/or kV according to patient size 3. Use of iterative reconstruction technique
--- NOTE | 2019-03-28 16:06 | PATHOLOGY ---
[facility] Accession Number: [id number] . 01 Material submitted: . lung - RIGHT LUNG MASS CORE BIOPSY. Modifiers: right . 01 Clinical history: . Right lung mass . 02 Diagnosis: Lung tissue, right lung mass needle core biopsies: - PULMONARY ACINAR ADENOCARCINOMA, MODERATELY-WELL DIFFERENTIATED. SEE COMMENT. . (JPM:vilma; 03/28/2019 QMS 03/28/2019 1512 Local . 02 Comment: Sections of the right lung mass needle core biopsy reveal areas of replacement of lung parenchyma by a malignant epithelial neoplasm. The neoplasm is composed of crowded irregular glands within an inflamed reactive fibrous stroma. The malignant glands are lined by cuboidal to columnar cells having eosinophilic cytoplasm and possessing enlarged, mild to focally moderately pleomorphic nuclei containing prominent nucleoli. An occasional mitotic figure is noted. The remaining lung parenchyma reveals focal pigmented pulmonary macrophages within air spaces. The morphologic findings are supportive of the diagnosis of a moderately-well differentiated pulmonary acinar adenocarcinoma. The case is also examined by Dr. Sanchez, who concurs with the diagnosis. The results are reported to Dr. Alicia on 03/28/19 at 1:25 PM. (JPM:vilma; 03/28/2019) . 02 Electronically signed: . Kamlesh Naranjo MD, Pathologist NPI- [id number] . 01 Gross description: . The specimen is received in formalin, labeled "Bartolo Degroot, right lung BX" and consists of 5 delicate needle cores measuring between 0.3 cm and 1.7 cm in length and 0.1 cm or less each in diameter. They are entirely submitted in A1-A3. (SDY; 03/27/2019) SYU/SYU 03/27/2019 1741 Local . 02 Pathologist provided ICD-10: C34.91 . 02 CPT . 288119 Specimen Comment: A courtesy copy of this report has been sent to [phone], [phone] Specimen Comment: [id number] Specimen Comment: Report sent to DR BAUTISTA / DR BLACKBURN Performed at: [address], [place] [id number] MD Everett Liu MD Phone: [phone] [facility]formed at: [facility] [address] [place] [id number] MD Kamlesh Naranjo MD Phone: [phone]
== END 2019-03-27 12:45 | disposition home or self-care (01) ==
LOC: INTRAD 06:42
PROVIDERS: ATTEND Internal Medicine Pulmonary Disease
DX: R91.8 Other nonspecific abnormal finding of lung field (principal); C34.91 Malignant neoplasm of unspecified part of right bronchus or lung; Z79.01 Long term (current) use of anticoagulants
CPT/HCPCS: 32405; 36415; 71045; 77012; 80048; 85025; 85610; J2250; J3010; 99152; 99153

== ENCOUNTER → 2019-05-04 | Outpatient (CLI) | payer BC ==
[2019-03-27 12:24] VITALS: BP 156/76
[~2019-05-04] MED LIST changes: +ALPR0.5T6 PO; +ESCITALOPRAM OX10 MG PO; +FEXO180T81 PO; +GLIM4TAB8 PO; +LISI1TAB23 PO; +PIOG30TA41 PO
--- NOTE | 2019-05-04 13:19 | RAD ---
CLINICAL HISTORY: Initial evaluation- right lung mass COMPARISON: CT abdomen 10/26/2012, CTA Runoff 03/06/2019 TECHNIQUE: Location of scan: [facility] Radiopharmaceutical Dose: 16 mCi F-18 FDG intravenous Blood glucose at time of study: 172 FDG uptake time = 60 minutes. Images were obtained from the mid head to the mid thighs. A low dose, noncontrast CT study was performed for the purpose of attenuation correction and anatomic localization. FINDINGS: Head and Neck: Physiologic activity is seen within the head and neck. Subtle calcifications are seen within the palatine tonsils. Chest: In the right lower lobe there is a 2 x 2.2 cm mildly lobulated lung mass with an SUV max of 2.6. 6 mm lingular lung nodule (series 3 image 101) is seen, with an SUV max of 1.4 although may be artifactually low given small size. Heart is not enlarged. Coronary artery calcifications are seen. No pericardial effusion. Dependent opacities in lower lobes likely atelectasis. Calcified mediastinal and hilar lymph nodes are seen. No definite lymphadenopathy visualized on this noncontrast low-dose examination. Abdomen and Pelvis: Physiologic activity is seen within the solid organs, including liver, renal collecting systems and bowel, including colon. A left adrenal nodule measures 1.5 cm, grossly stable to prior CT 10/26/2012 when it measured approximately 10 Hounsfield units and is therefore likely lipid rich adenoma. High density renal lesions bilaterally likely hemorrhagic/formation cysts. Dense atherosclerotic changes of aorta are seen. Skeletal: Degenerative changes of the spine are seen. No definite aggressive hypermetabolic lesion is seen. Reference SUV Values: Mediastinal SUV Max: 2.1 Liver SUV Max: 2.5 IMPRESSION: 1. The lobulated right lower lobe lung nodule is mildly hypermetabolic, suspicious for malignancy. 2. No hypermetabolic left adrenal adenoma, previously characteristics of lipid rich adenoma. 3. Additional lung nodules including a 6 mm lung nodule in the lingula are nonspecific. Recommend close interval follow-up CT evaluation in 3 months. Radiation Dosimetry: The radiopharmaceutical used for this exam delivers approximately 0.7 mSv/mCi (70 mRem/mCi) Source: ICRP Publication 106 Electronically signed by: Lew Perry MD (05/04/2019 1:16 PM) [id number]
== END | disposition home or self-care (01) ==
LOC: PETSC 08:15
PROVIDERS: ATTEND Internal Medicine Pulmonary Disease
DX: R91.8 Other nonspecific abnormal finding of lung field (principal); I70.0 Atherosclerosis of aorta; E27.8 Other specified disorders of adrenal gland; M47.819 Spondylosis without myelopathy or radiculopathy, site unspecified
CPT/HCPCS: 78815; A9552

== ENCOUNTER → 2019-12-12 | Outpatient (CLI) | payer BC ==
[2019-11-08 15:00] VITALS: BP 109/42
[~2019-12-12] MED LIST changes: +AMIO200T7 PO; +AMLO-187 PO; -AMLO10TA8 PO; +CEFD300C PO; +DILT240C33 PO; +INSU100I17 SQ; +INSU3INS2 SQ; +METR500T PO
--- NOTE | 2019-12-12 16:16 | CARD ---
MR#: [id number] Date of Study: 12/12/2019 Ordering Physician: CHATA SCHAFFER, Referring Physician: CHATA SCHAFFER, Tech: Anastasiya Lino APPROVED REPORT EXAM: Two-dimensional and M-mode echocardiogram with Doppler and color Doppler. Other Information HR: 73bpm INDICATION Atrial Fibrillation 2D DIMENSIONS Left Atrium(2D)2.9 (1.6-4.0cm)IVSd1.4 (0.7-1.1cm) Aortic Root(2D)3.1 (2.0-3.7cm)LVDd5.8 (3.9-5.9cm) LVOT Diameter2.0 (1.8-2.4cm)PWd1.2 (0.7-1.1cm) LVDs3.1 (2.5-4.0cm)FS (%) 45.9 % SV126.2 mlLVEF(%)76.6 (>50%) Aortic Valve AoV Peak Robert.134.8cm/sAoV VTI23.8cm AO Peak GR.7.3mmHgLVOT Peak Robert.117.7cm/s LVOT VTI 21.34cmAO Mean GR.3mmHg YANIV (VMAX)2.21qt1HOP (VTI)2.76cm2 Mitral Valve MV E Ngrhhwte67.2cm/sMV DECEL [id number] MV A Gqrmcguw21.6cm/sMV KXD61ya E/A Ratio0.7MVA (PHT)2.75cm2 TDI E/Lateral E'8.3E/Medial E'11.0 Pulmonary Valve PV Peak Rpeiwwqt29.2cm/sPV Peak Grad.2mmHg Tricuspid Valve TR P. Cwwxhlhw669oa/sRAP QYTJKQQN1kjUw TR Peak Gr.41pdOtIKDF00gbRj Pulmonary Vein S1 Kyepvfaf35.4cm/sD2 Fnzxtjiw26.2cm/s PVa axfshgbz907qwlm LEFT VENTRICLE The left ventricle is normal size. There is mild to moderate concentric left ventricular hypertrophy. The left ventricular systolic function is normal. The Ejection Fraction is 50-55%. There is normal L V segmental wall motion. Transmitral Doppler flow pattern is Grade I-abnormal relaxation pattern. RIGHT VENTRICLE The right ventricle is normal size. There is normal right ventricular wall thickness. The right ventr icular systolic function is normal. ATRIA The left atrium size is normal. The right atrium size is normal. The interatrial septum is intact wit h no evidence for an atrial septal defect or patent foramen ovale as noted on 2-D or Doppler imaging. AORTIC VALVE The aortic valve is calcified but opens well. Doppler and Color Flow revealed no significant aortic r egurgitation. There is no significant aortic valvular stenosis. Calculated aortic valve area is 2.64 cm2 with maximum pressure gradient of 8 mmHg and mean pressure gradient of 4 mmHg. MITRAL VALVE The mitral valve is normal in structure and function. There is no evidence of mitral valve prolapse. There is no mitral valve stenosis. Doppler and Color Flow revealed no mitral valve regurgitation note d. TRICUSPID VALVE The tricuspid valve is normal in structure and function. Doppler and Color Flow revealed trace tricus pid regurgitation with an estimated PAP of 38 mmHg. There is no tricuspid valve stenosis. PULMONIC VALVE The pulmonic valve is not well visualized. Doppler and Color Flow revealed no pulmonic valvular regur gitation. GREAT VESSELS The aortic root is normal in size. The IVC is normal in size and collapses >50% with inspiration. PERICARDIAL EFFUSION There is no evidence of significant pericardial effusion. Critical Notification Critical Value: No <Conclusion> The left ventricular systolic function is normal. The Ejection Fraction is 50-55%. There is normal LV segmental wall motion. Transmitral Doppler flow pattern is Grade I-abnormal relaxation pattern. Trace tricuspid regurgitation with an estimated PAP of 38 mmHg. There is no evidence of significant pericardial effusion. Signed by : Hong Tenorio, Electronically Approved : 12/12/2019 16:15:42
== END ==
LOC: ECHO 13:46
PROVIDERS: ATTEND Internal Medicine Cardiovascular Disease
DX: I48.91 Unspecified atrial fibrillation (principal); I51.7 Cardiomegaly
CPT/HCPCS: 93306

== ENCOUNTER → 2020-01-04 | Outpatient (CLI) | payer BC ==
[2019-11-08 15:00] VITALS: BP 109/42
--- NOTE | 2020-01-04 08:41 | RAD ---
EXAM: CT Chest without IV contrast INDICATION: Reason: LUNG NODULE / Spl. Instructions: / History: TECHNIQUE: Multi-detector row CT images were acquired from the thoracic inlet through the upper abdomen without the use of IV contrast. Sagittal and coronal images were acquired from the transaxial data. All CT scans performed at this facility utilize dose optimization techniques as appropriate to the exam, including the following: Automated exposure control and adjustment of the mA and/or KV according to patient size (this includes techniques or standardized protocols for targeted exams where dose is indication/reason for exam). COMPARISON: CT chest without IV contrast 11/01/2019 FINDINGS: The absence of IV contrast limits evaluation of soft tissue pathology. CARDIOVASCULAR: Scattered aortic calcifications. Normal caliber thoracic aorta with no evidence of intramural hematoma. Normal heart size. Multivessel coronary calcifications. No pericardial effusion. MEDIASTINUM & TEAGAN: Mildly enlarged mediastinal lymph nodes remain present with slight interval decrease in size. Previous examination suggested the presence of a 2 cm lymph node but that exam was degraded by motion artifact. On follow-up exam, it is more apparent that the questioned enlarged node represented 2 adjacent lymph nodes that are now resolvable with less motion artifact. The largest lymph node remains a right paratracheal node now measuring 1.2 x 1.0 cm (image 14 of axial series 2), compared with 1.8 x 1.2 cm of the comparable level on the previous examination (image 14 of series 3 on the previous exam). LUNGS: Left upper lobe spiculated pulmonary nodule measures 1.1 x 0.8 cm x 1.0 (image 23 series 2), not significantly changed in the 2 months since it was last imaged. There are numerous additional sub-5 mm pulmonary nodules present (such as a 2 mm nodule on image 13 and image 12 in the peripheral left upper lobe, annotated with arrows). Left lower lobe shows a 7 x 9 mm oval nodule in the medial basal segment left lower lobe (image 37 series 2) that may have been present on the prior exam but if so, was obscured by respiratory motion artifact. Right upper lobe posterior parenchymal consolidation has markedly improved in the interval, nearly fully resolved. Right lower lobe remains surgically absent. Right middle lobe is well aerated and apart from more general centrilobular pattern emphysema that affects the upper lobes to the greatest extent, is unremarkable. PLEURAL SPACE: No pneumothorax. A moderate-sized right pleural effusion has decreased slightly in the interval. OSSEOUS & SOFT TISSUE: Thoracotomy scar superficial to the right sixth rib posteriorly is noted. No chest wall fluid collection or mass. No acute or aggressive appearing osseous lesions. ABDOMEN: The visualized portions of the upper abdomen are unremarkable. IMPRESSION: 1. No interval change on 2 month follow-up in the 1.1 cm spiculated left upper lobe pulmonary nodule, still suspicious for a lung malignancy. 2. Resolving posttreatment changes in the right upper lobe status post right lower lobectomy with residual moderate right pleural effusion. Electronically signed by: Michel Rodriguez MD (01/04/2020 8:38 AM) [id number]
== END ==
LOC: CT 09:09
PROVIDERS: ATTEND Internal Medicine Pulmonary Disease
DX: J90 Pleural effusion, not elsewhere classified (principal); R91.1 Solitary pulmonary nodule; I25.10 Atherosclerotic heart disease of native coronary artery without angina pectoris; Z87.09 Personal history of other diseases of the respiratory system
CPT/HCPCS: 71250

== ENCOUNTER → 2020-05-28 | Outpatient (CLI) | payer BC ==
[2019-11-08 15:00] VITALS: BP 109/42
[~2020-05-28] MED LIST changes: -ISOS30TA4 PO; +ISOS30TA68 PO; -ISOS60TA2 PO; +ISOS60TA55 PO; -LISI-334 PO; +LISI10TA16 PO; -LISI10TA2 PO; +LISI20TA18 PO
--- NOTE | 2020-05-28 17:47 | RAD ---
EXAM: CT CHEST WITHOUT CONTRAST HISTORY: Lung nodule COMPARISON: CT chest 01/04/2020 TECHNIQUE: Helical CT of the chest performed without contrast. Coronal and sagittal reformats were o btained. One or more of the following individualized dose reduction techniques were utilized for this examinat ion: 1. Automated exposure control 2. Adjustment of the mA and/or kV according to patient size 3. Use of iterative reconstruction technique. FINDINGS: Thyroid gland and thoracic inlet: Visualized portion of the thyroid gland is normal. Heart and great vessels: Heart is normal in size. No pericardial effusion. There are coronary artery calcifications. Thoracic aorta is normal in caliber. Moderate calcified atherosclerosis in the thorac ic aorta. Mediastinum and dionna: Multiple mild enlarged mediastinal lymph nodes have slightly decreased in size. There are calcified right hilar lymph node, unchanged. Lungs and pleura: Spiculated pulmonary nodule in the left upper lobe is increased in size, now 1.4 x 1.2 x 1.3 cm cm, previously 1.3 x 0.8 x 0.9 cm. A a 9 x 7 mm nodule in the medial left lower lobe is unchanged. Other small tiny nodules in the left lung are stable. Surgical changes of right lower lobe ctomy are redemonstrated. There is mild airway wall thickening. Small right pleural effusion. Chest wall and axillae: No axillary lymphadenopathy. Upper abdomen: Surgical changes of cholecystectomy. Bones: No acute osseous abnormality. IMPRESSION: 1. Increased size of spiculated left upper lobe pulmonary nodule, suspicious for malignancy. Recomme nd biopsy. 2. Unchanged 9 mm pulmonary nodule in the medial left lower lobe. Other tiny pulmonary nodules in th e left lung are also unchanged. 3. Slightly decreased mediastinal lymphadenopathy. Electronically signed by: Yakelin Ying MD (05/28/2020 5:44 PM) [id number]
== END ==
LOC: CT 08:56
PROVIDERS: ATTEND Internal Medicine Pulmonary Disease
DX: R91.8 Other nonspecific abnormal finding of lung field (principal); R59.0 Localized enlarged lymph nodes; I70.0 Atherosclerosis of aorta; J90 Pleural effusion, not elsewhere classified; Z90.49 Acquired absence of other specified parts of digestive tract
CPT/HCPCS: 71250

== ENCOUNTER 2020-07-15 06:49 | Outpatient (CLI) | payer BC ==
[2020-07-15] VITALS (17 sets, daily range): BP systolic 141–211; BP diastolic 52–95
[~2020-07-15] VITALS: Ht 177.8 cm; Wt 86.0 kg
[2020-07-15 07:35] LABS: BASO # 0.1 x10^3/uL (0.0-0.2); BASO % 1 % (0-3); EOS # 0.1 x10^3/uL (0.0-0.7); EOS % 1 % (0-3); HEMATOCRIT 39.1 % (39.0-53.0); HEMOGLOBIN 12.9 g/dL (13.0-17.5); LYMPH # 1.1 x10^3/uL (1.0-4.8); LYMPH % 15 % (24-48); MEAN CORPUSCULAR HEMOGLOBIN 29 pg (25-35); MEAN CORPUSCULAR HGB CONC 33 g/dL (31-37); MEAN CORPUSCULAR VOLUME 87 fL (79-100); MONO # 0.6 x10^3/uL (0.0-1.1); MONO % 9 % (0-9); NEUT # 5.4 x10^3/uL (1.8-7.7); NEUT % 75 % (31-73); PLATELET COUNT 177 x10^3/uL (140-400); RED CELL DISTRIBUTION WIDTH 16.5 % (11.5-14.5); WHITE BLOOD COUNT 7.2 x10^3/uL (4.0-11.0)
[2020-07-15] MEDS ORDERED: LIDOCAINE WITH 8.4% SOD BICARB 3 ML DISP.SYRIN. ONE (08:16)
[2020-07-15] MEDS ORDERED: MIDAZOLAM HCL/PF 2 MG/2 ML VIAL. ONE (08:16)
[2020-07-15] MEDS ORDERED: fentaNYL PF VIAL 100 MCG/2 ML VIAL ONE (08:17)
[2020-07-15] MEDS ORDERED: DABI150C PO (08:23)
[2020-07-15] MEDS ORDERED: MIDAZOLAM HCL/PF 2 MG/2 ML VIAL. IV ONE (08:30)
[2020-07-15] MEDS ORDERED: LIDOCAINE WITH 8.4% SOD BICARB 3 ML DISP.SYRIN. IJ ONE (08:30)
[2020-07-15] MEDS ORDERED: fentaNYL PF VIAL 100 MCG/2 ML VIAL IV ONE (08:30)
[2020-07-15] MEDS ORDERED: hydrALAZINE 20 MG/ML VIAL. ONE (08:47)
[2020-07-15] MEDS ORDERED: hydrALAZINE 20 MG/ML VIAL. IVP ONE (09:00)
--- NOTE | 2020-07-15 12:01 | NUR ---
PIV removed, instructions provided on sedation, site care, lung biopsy. Patient and verbalized understanding. No questions at time of d/c. Patient will be following up with Dr. Al on 07/18. No bleeding at site, VS stable. Order received from Dr. Gregory to d/c patient post CXR. All belongings taken w/ patient. driving.
--- NOTE | 2020-07-15 12:51 | PDOC ---
Exam Bead Flipper Bead Flipper Bri Pre-Procedure Diagnosis Pre-Procedure Diagnosis Lung nodule, Left Post-Procedure Diagnosis Post-Procedure Diagnosis Same Procedure Performed Procedure Performed Left lung nodule biopsy, ct guided Type of Anesthesia Type of Anesthesia Mod Sed Estimated Blood Loss EBL: 2 Specimens Specimans Core biopsy samples Drain/Tubes Drains/Tubes None Condition of Patient Condition of Patient Stable Disposition Disposition To [facility] for recovery HEATH TIMMONS MD Jul 15, 2020 12:51
--- NOTE | 2020-07-15 13:36 | RAD ---
XR CHEST 1V History: Reason: Post lung Bx / Spl. Instructions: / History: Comparison: CT September 27, 2020. CT biopsy July 15, 2020 Findings: Increased left midlung nodular opacity. No definite pneumothorax. Patchy bibasilar opacities, likely atelectasis. Right pleural effusion. Normal heart size. Impression: 1. Increased left midlung nodular opacity, likely related to postbiopsy hemorrhage. No definite pneu mothorax on radiograph. 2. Small right pleural effusion. Electronically signed by: Alin Malone DO (07/15/2020 1:33 PM) [facility]
--- NOTE | 2020-07-15 14:08 | RAD ---
CT biopsy, left upper lobe pulmonary nodule 07/15/2020 Consent: The procedure was explained in its entirety to the patient or the patients designated repres entative by a member of the treatment team, including a discussion of the risks, benefits and commonl y accepted alternatives to the procedure, as well as the expected consequences of no therapy whatsoev er. Discussion of the risks included, but was not limited to, those that are most frequent and thos e that are rare but possibly severe or life-threatening, as well as the possibility of unforeseen com plications. Discussion: The patient was placed in the supine position. A timeout procedure was performed. CT imag ing redemonstrates a left upper lobe pulmonary nodule targeted for biopsy. Left upper chest was prepp ed and draped using sterile barrier technique. 1% lidocaine was administered for local anesthesia. Un kaley intermittent CT guidance a 17-gauge needle was advanced to the nodule. Core biopsy samples were o btained. The needle was removed. Interval perilesional hemorrhage and trace pneumothorax noted. The p atient remained hemodynamically stable. No other complications were identified. Sterile dressings wer e applied. Sedation: The procedure was performed under conscious sedation including continuous cardiopulmonary m onitoring via a dedicated sedation nurse. [id number] sedation time: 30 minutes IMPRESSION: CT-guided biopsy, left upper lobe pulmonary nodule CT DOSING PQRS STATEMENT: One or more of the following individualized dose reduction techniques were utilized for this examinat ion: 1. Automated exposure control 2. Adjustment of the mA and/or kV according to patient size 3. Use of iterative reconstruction technique Electronically signed by: Al Gregory MD (07/15/2020 2:06 PM) [id number]
--- NOTE | 2020-07-16 18:06 | PATHOLOGY ---
[facility] Accession Number: [id number] . 01 Material submitted: . lung - LEFT LUNG NODULE BIOPSY. Modifiers: left . 01 Clinical history: . LEFT LUNG NODULE LEFT LUNG BIOPSY . 02 Diagnosis: Lung tissue, left lung nodule needle biopsies: - SQUAMOUS CELL CARCINOMA, MODERATELY DIFFERENTIATED. SEE COMMENT. (JPM:[facility]; 07/16/2020) [facility] 07/16/2020 0913 Local . 02 Comment: Sections of the left lung nodule needle biopsy show extensive replacement of lung parenchyma by a malignant epithelial neoplasm. The tumor cells are present in irregular solid nests within a reactive desmoplastic stroma. The tumor cells have a polygonal shape. Some of the tumor cells have a high N/C ratio with small amounts of cytoplasm. Other cells have more abundant amounts of eosinophilic keratinized cytoplasm. There are dyskeratotic cells present. The tumor cells possess enlarged, rounded to ovoid nuclei containing small nucleoli. There are mitotic figures present. There are foci of tumor necrosis. The morphologic findings are supportive of the diagnosis of a moderately differentiated squamous cell carcinoma. The case is also examined by Dr. Sellers, who concurs with the diagnosis. The results are reported to Dr. Gray on 07/16/2020 at 1:40 PM. (JPM:[facility]; 07/16/2020) . 02 Electronically signed: . Kamlesh Naranjo MD, Pathologist NPI- [id number] . 01 Gross description: . Received in formalin labeled "Jovic, Bartolo and left lung biopsy". Received are 2 lung core biopsies ranging from 0.5-0.8 cm in length and 0.1 cm in diameter. The specimen is entirely submitted in cassette A1.(BLJ; 07/15/2020) BLJ/BLJ 07/15/2020 1533 [facility] . 02 Pathologist provided ICD-10: C34.92 . 02 CPT . 553319 Specimen Comment: A courtesy copy of this report has been sent to [phone], [phone] Specimen Comment: [id number], Specimen Comment: Report sent to ,DR GRAY / DR BLACKBURN Performed at: 01 [facility] [address], [place] [id number] MD Sanjiv Sellers MD Phone: [phone] Performed at: 02 [facility] [address] [place], [place] [id number] MD Kamlesh Naranjo MD Phone: [phone]
== END 2020-07-15 12:00 | disposition home or self-care (01) ==
LOC: INTRAD 06:49
PROVIDERS: ATTEND Internal Medicine Pulmonary Disease
DX: R91.8 Other nonspecific abnormal finding of lung field (principal); J90 Pleural effusion, not elsewhere classified; C34.92 Malignant neoplasm of unspecified part of left bronchus or lung; I10 Essential (primary) hypertension; I48.91 Unspecified atrial fibrillation; E78.00 Pure hypercholesterolemia, unspecified; K21.9 Gastro-esophageal reflux disease without esophagitis; E11.9 Type 2 diabetes mellitus without complications; F41.9 Anxiety disorder, unspecified; F32.9 Major depressive disorder, single episode, unspecified; F17.210 Nicotine dependence, cigarettes, uncomplicated; Z90.49 Acquired absence of other specified parts of digestive tract; Z98.890 Other specified postprocedural states; Z79.84 Long term (current) use of oral hypoglycemic drugs; Z79.899 Other long term (current) drug therapy; Z88.0 Allergy status to penicillin; Z72.89 Other problems related to lifestyle
CPT/HCPCS: 32408; 36415; 71045; 85025; 85610; 99152; 99153; J0360; J2250; J3010; J3490; 88305

== ENCOUNTER → 2020-08-15 | Outpatient (CLI) | payer BC ==
[2020-07-15 11:36] VITALS: BP 173/70
[~2020-08-15] MED LIST changes: +DABI150C PO
--- NOTE | 2020-08-15 10:15 | RAD ---
EXAM: Dual modality PET-CT Scan DATE: 08/15/2020 RADIOPHARMACEUTICAL: 14.4 mCi F-18 fluorodeoxyglucose (FDG) IV. CLINICAL HISTORY: Lung nodule restaging. COMPARISON: CTs dated 07/15/2020 and 05/28/2020. PET/CT dated 05/04/2019. TECHNIQUE: Approximately 45 minutes after tracer administration, routine, attenuation-corrected Posit cherie Emission Tomography (PET) images were obtained from the level of the base of the skull through th e level of the mid thighs. Tomographic reconstructions are reviewed in coronal, transaxial and sagitt al planes. Non-contrast CT imaging was performed for attenuation correction and localization purpose s only. These images do not constitute a diagnostic-quality CT examination and were not used to diag nose disease independently of the PET images. The blood glucose level was 140 mg/dL at the time of FDG administration. *One or more of the following individualized dose reduction techniques were utilized for this examina tion: 1. Automated exposure control. 2. Adjustment of the mA and/or kV according to patient size. 3. Use of iterative reconstruction technique. FINDINGS: There is increased radiotracer activity within SUV of 3.6 associated with a 1.4 cm speculat ed nodule within the left upper lobe. There is nonspecific mild increased radiotracer activity within an SUV of 1.5 within a 1.1 cm right paratracheal lymph node. There are additional mediastinal lymph nodes with lesser degrees of radiotracer activity. There is mild radiotracer activity within maximum SUV of 1.9 associated with right lateral thoracic pleural thickening, a nonspecific finding. There is increased radiotracer activity within maximum SUV of 3.0 associated with a 2.2 cm left adrenal nodul e. There is increased radiotracer activity along the barby of the right hemidiaphragm which is likely muscular. No lymphadenopathy is seen in this location. There is expected tracer activity within the b owel and renal collecting system. The CT portion of the exam demonstrates a spiculated anterior lateral left upper lobe or nodule measu ring 1.4 cm. There is a small moderate partially loculated right pleural effusion. This is slightly i ncreased compared to the study performed 05/28/2020. There is right greater than left lower thoracic a nd posterior dependent atelectasis. No infiltrate is seen. There is emphysema. There is no pneumothor ax. There is an 8 mm nodule within the medial left lower lobe, stable in appearance. There are few additi onal tiny bilateral pulmonary nodules measuring up to 3 mm within the bilateral upper lobes. These ar e stable in appearance. The heart is mildly enlarged. There is aortic and coronary artery atheroscler osis. There are prominent mediastinal and hilar lymph nodes. There are calcified right hilar granulom as. There is a small amount of mucus within the trachea. No hepatic lesion is seen. The gallbladder is absent. The pancreas, spleen and right adrenal gland ar e unremarkable. There is a 2.2 cm left adrenal nodule or nodular thickening of the left adrenal gland . There are simple appearing cyst within the right kidney, the largest of which measures 2.2 cm. Ther e is a 1.5 cm hyperdense lesion along the lateral mid zone of the right kidney which is likely a hemo rrhagic cyst. There is no evidence of bowel obstruction. There is no abnormal bowel wall thickening. There is mild prostatomegaly. There is heavily calcified plaque involving the aorta and aortic branch vessels. Ther e are nonspecific retroperitoneal and mesenteric lymph nodes. There are degenerative changes througho ut the spine. There is bilateral hip osteoarthritis. There is a plug within the right internal canal due to prior hernia repair. IMPRESSION: 1. Radiotracer avid 1.4 cm spiculated left upper lobe pulmonary nodule within SUV of 3.6. This lesion is increased in size and demonstrates increased radiotracer activity compared to the PET/CT dated . The morphology of this lesion is concerning for primary bronchogenic neoplasm. 2. Findings consistent with prior partial right lung resection. The previously demonstrated lower lob e mass is no longer seen. There is a moderate partially loculated right pleural effusion which is sli ghtly increased compared to the prior CT dated 05/28/2020. There is mild nonspecific radiotracer activ ity associated with slight lateral right pleural thickening within SUV of less than 2.0. 3. Mild radiotracer activity with an SUV of 3.0 associated with a 2.2 cm left adrenal nodule or nodul ar thickening of the left adrenal gland. The degree of radiotracer activity is increased compared to the prior study. However, the nodule or nodular thickening is unchanged in appearance compared to the prior PET/CT. This favors benignity. 4. Nonspecific radiotracer activity within a 1.1 cm right paratracheal lymph node with an SUV of 1.5. There has been interval increase in the size of multiple mediastinal lymph nodes compared to the sonia or PET/CT. The degree of radiotracer activity favors a reactive etiology rather than metastatic disea se. However, these remain indeterminant. 5. Small bilateral pulmonary nodules, the largest of which measures 8 mm within the medial left lower lobe is stable compared to the prior PET/CT. These are too small to characterize with PET. 6. Stable 1.5 cm hyperdense lesion without radiotracer activity within the right kidney, likely a hem orrhagic cyst. There are additional simple appearing right renal cysts. 7. Emphysema with pleural-parenchymal scarring and right greater than left lower lobe predominant ate lectasis. Electronically signed by: Darlene Turner MD (08/15/2020 10:13 AM) [id number]
== END ==
LOC: PETSC 07:51
PROVIDERS: ATTEND Radiology Radiation Oncology
DX: C34.12 Malignant neoplasm of upper lobe, left bronchus or lung (principal); R91.8 Other nonspecific abnormal finding of lung field; J98.11 Atelectasis; J43.9 Emphysema, unspecified; J90 Pleural effusion, not elsewhere classified; J98.4 Other disorders of lung; J92.9 Pleural plaque without asbestos; I51.7 Cardiomegaly; R59.0 Localized enlarged lymph nodes; M16.0 Bilateral primary osteoarthritis of hip; E27.8 Other specified disorders of adrenal gland; I25.10 Atherosclerotic heart disease of native coronary artery without angina pectoris; Z90.49 Acquired absence of other specified parts of digestive tract
CPT/HCPCS: 78815; A9552

== ENCOUNTER 2020-11-12 07:26 | Outpatient (CLI) | payer BC ==
[~2020-11-12] VITALS: Ht 177.8 cm; Wt 81.8 kg
[2020-11-12] VITALS (9 sets, daily range): BP systolic 148–186; BP diastolic 67–85
[2020-11-12 08:36] LABS: BASO # 0.1 x10^3/uL (0.0-0.2); BASO % 1 % (0-3); EOS # 0.2 x10^3/uL (0.0-0.7); EOS % 2 % (0-3); HEMATOCRIT 40.1 % (39.0-53.0); HEMOGLOBIN 13.3 g/dL (13.0-17.5); LYMPH # 1.1 x10^3/uL (1.0-4.8); LYMPH % 15 % (24-48); MEAN CORPUSCULAR HEMOGLOBIN 29 pg (25-35); MEAN CORPUSCULAR HGB CONC 33 g/dL (31-37); MEAN CORPUSCULAR VOLUME 86 fL (79-100); MONO # 0.7 x10^3/uL (0.0-1.1); MONO % 9 % (0-9); NEUT # 5.3 x10^3/uL (1.8-7.7); NEUT % 73 % (31-73); PLATELET COUNT 162 x10^3/uL (140-400); RED BLOOD COUNT 4.65 x10^6/uL (4.30-5.70); RED CELL DISTRIBUTION WIDTH 17.1 % (11.5-14.5); WHITE BLOOD COUNT 7.3 x10^3/uL (4.0-11.0)
[2020-11-12 08:43] LABS: CREATININE 1.1 mg/dL (0.7-1.3); GFR 66.4; POTASSIUM 3.8 mmol/L (3.5-5.1)
[2020-11-12 08:46] LABS: PROTHROMBIN TIME PATIENT 11.3 SEC (11.7-14.0)
[2020-11-12] MEDS ORDERED: AMIO200T6 PO (08:46)
[2020-11-12] MEDS ORDERED: HYDR12.59 PO (08:46)
[2020-11-12] MEDS ORDERED: RIVA20TA2 PO (08:46)
[2020-11-12] MEDS ORDERED: ALPR0.5T6 PO (08:46)
[2020-11-12] MEDS ORDERED: OXYC5CAP PO (08:46)
[2020-11-12] MEDS ORDERED: vitamin D PO (08:46)
[2020-11-12] MEDS ORDERED: HYDR-2869 PO (08:46)
[2020-11-12 08:49] LABS: ALBUMIN 3.3 g/dL (3.4-5.0); ALBUMIN/GLOBULIN RATIO 1.1 (1.0-1.7); TOTAL BILIRUBIN 0.3 mg/dL (0.2-1.0); TOTAL PROTEIN 6.4 g/dL (6.4-8.2)
[2020-11-12] MEDS ORDERED: NITROGLYCERIN 200 MCG/2 ML SYRINGE FOR CATH/VASC LAB. ONE (09:08)
[2020-11-12] MEDS ORDERED: HEPARIN for IV BOLUS 10,000 UNIT/10 ML VIAL. IART ONE (09:30)
[2020-11-12] MEDS ORDERED: MIDAZOLAM HCL/PF 2 MG/2 ML VIAL. ONE ×2 (09:30→10:52)
[2020-11-12] MEDS ORDERED: IODIXANOL 320 MG/ML 100 ML VIAL. IART ONE (09:30)
[2020-11-12] MEDS ORDERED: VERAPAMIL 5 MG/2 ML VIAL. ONE (09:30)
[2020-11-12] MEDS ORDERED: NITROGLYCERIN 200 MCG/2 ML SYRINGE FOR CATH/VASC LAB. IART ONE (09:30)
[2020-11-12] MEDS ORDERED: LIDOCAINE WITH 8.4% SOD BICARB 3 ML DISP.SYRIN. IJ ONE (09:30)
[2020-11-12] MEDS ORDERED: MIDAZOLAM HCL/PF 2 MG/2 ML VIAL. IV ONE (09:30)
[2020-11-12] MEDS ORDERED: fentaNYL PF VIAL 100 MCG/2 ML VIAL ONE ×2 (09:30→11:33)
[2020-11-12] MEDS ORDERED: VERAPAMIL 5 MG/2 ML VIAL. IART ONE (09:30)
[2020-11-12] MEDS ORDERED: HEPARIN for IV BOLUS 10,000 UNIT/10 ML VIAL. ONE (09:30)
[2020-11-12] MEDS ORDERED: fentaNYL PF VIAL 100 MCG/2 ML VIAL IV ONE (09:30)
[2020-11-12] MEDS ORDERED: IODIXANOL 320 MG/ML 100 ML VIAL. ONE (09:32)
[2020-11-12] MEDS ORDERED: LIDOCAINE WITH 8.4% SOD BICARB 3 ML DISP.SYRIN. ONE (09:32)
[2020-11-12] MEDS ORDERED: hydrALAZINE 20 MG/ML VIAL. ONE (11:33)
[2020-11-12] MEDS ORDERED: hydrALAZINE 20 MG/ML VIAL. IVP ONE (11:45)
[2020-11-12] MEDS ORDERED: ONDANSETRON PF 4 MG/2 ML VIAL. ONE (12:09)
[2020-11-12] MEDS ORDERED: ONDANSETRON PF 4 MG/2 ML VIAL. IVP ONE (12:30)
[2020-11-12] MEDS ORDERED: METF10007 PO ×2 (13:54→13:55)
--- NOTE | 2020-11-12 14:19 | NUR ---
TR band dc'd. Armboard reapplied. Discharge instructions reviewed with pt and family. Pt ambulated and tolerated PO.
--- NOTE | 2020-11-12 15:54 | RAD ---
11/12/2020 1. Abdominal aortogram 2. Pelvic angiography 3. Left lower extremity angiography 4. endovascular repair of a left common iliac artery chronic total occlusion with placement of a left common and external iliac self-expanding stent 5. Treatment superficial femoral artery stenoses with balloon angioplasty x2 Indication: Patient is a 70-year-old male with known severe peripheral vascular disease. Patient zoë delgado presented with claudication, however during workup was found to have a lung cancer. This was tr eated with lobectomy requiring a protracted recovery, and then ultimately the patient was diagnosed w ith a second focus of lung cancer, requiring radiation therapy. He is doing well with treatment in at [facility]. Prior CT angiography was obtained back in February 2019 which showed high-grade stenosis to near occlusion of the left common iliac artery and right common femoral artery. The patient reports a relatively remote right groin intervention since which time he has had right lower extremity claudi cation. He now has left lower extremity claudication as well, and addition to weakness and occasional numbness in his left lower extremity. Consent: The procedure was explained in its entirety to the patient or the patients designated repres entative by a member of the treatment team, including a discussion of the risks, benefits and commonl y accepted alternatives to the procedure, as well as the expected consequences of no therapy whatsoev er. Discussion of the risks included, but was not limited to, those that are most frequent and thos e that are rare but possibly severe or life-threatening, as well as the possibility of unforeseen com plications. PROCEDURE: The patient had a normal modified Teo's test in the bilateral upper extremities. Ultraso und evaluation demonstrates the right radial artery to be of normal caliber and patent. The right upp er extremity was prepped and draped using maximum sterile barrier technique. The right radial artery was accessed using micropuncture technique, under direct ultrasound guidance, and a 4 [place] sheath w as placed. Reference ultrasound images were saved in the medical record. A catheter was advanced to the abdominal aorta and an abdominal aortogram was obtained. The abdominal aorta demonstrates no aneurysm or dissection. Tapering of the distal abdominal aorta is seen. The ca theter was then repositioned in the low abdominal aorta and a pelvic angiograms were obtained. This d emonstrates chronic total occlusion of the left common iliac artery reconstituting at the bifurcation of the internal and external iliac artery. Multiple well-developed collaterals noted. There is diffu se irregularity of the right common and external iliac artery. No high-grade stenosis is seen. There is chronic total occlusion of the right common femoral artery. The chronic iliac occlusion was crossed in antegrade fashion. There is predilated with a 5 mm balloon and subsequently treated with placement of a 6 x 80 self-expanding stent. Catheter was advanced into the superficial femoral artery and angiograms were obtained demonstrating a proximal and mid stenosis. These are both treated with 5 mm balloon angioplasty. This resulted in i mproved morphology and flow. The popliteal artery is patent. The trifurcation is patent. The posterio r tibial artery and dorsalis pedis artery patent the foot. Following intervention the patient's dorsalis pedis arteries easily palpable. The sheath was removed and a TR band was placed to achieve hemostasis. This was removed per protocol without complication. S terile dressings were applied. IMPRESSION: 1. Chronic total occlusion, left common iliac artery treated with self expanding stent placement 2. Multifocal left superficial femoral artery stenosis, treated with balloon angioplasty 3. Chronic total occlusion, right common femoral artery. Patient will be referred to vascular surgery for consideration of endarterectomy and possible right lower extremity angiogram/intervention if nee ded at that time. Electronically signed by: Al Gregory MD (11/12/2020 3:51 PM) [id number]
== END 2020-11-12 14:29 | disposition home or self-care (01) ==
LOC: INTRAD 07:26
PROVIDERS: ATTEND Surgery
DX: I73.9 Peripheral vascular disease, unspecified (principal); I70.90 Unspecified atherosclerosis; I48.91 Unspecified atrial fibrillation; I10 Essential (primary) hypertension; E78.00 Pure hypercholesterolemia, unspecified; E11.9 Type 2 diabetes mellitus without complications; K21.9 Gastro-esophageal reflux disease without esophagitis; F41.9 Anxiety disorder, unspecified; F32.9 Major depressive disorder, single episode, unspecified; F17.210 Nicotine dependence, cigarettes, uncomplicated; Z79.4 Long term (current) use of insulin; Z79.899 Other long term (current) drug therapy; Z98.890 Other specified postprocedural states; Z88.0 Allergy status to penicillin; Z72.89 Other problems related to lifestyle
CPT/HCPCS: 36415; 37221; 37224; 75625; 75710; 76937; 80053; 85025; 85610; 99152; 99153; C1713; C1725; C1769; C1876; C1892; C1894; J0360; J1644; J2250; J2405; J3010; J3490; Q9967

== ENCOUNTER → 2021-01-02 | Outpatient (CLI) | payer BC ==
[2020-11-12 14:00] VITALS: BP 148/67
[~2021-01-02] MED LIST changes: +AMIO200T53 PO; +HYDR-2869 PO; +HYDR12.59 PO; -LISI1TAB23 PO; +LISI1TAB35 PO; +OXYC5CAP PO; +RIVA20TA2 PO; +vitamin D PO
--- NOTE | 2021-01-02 14:15 | RAD ---
EXAM: Dual modality PET-CT Scan DATE: 01/02/2021 RADIOPHARMACEUTICAL: 15 mCi F-18 fluorodeoxyglucose (FDG) IV. CLINICAL HISTORY: Lung cancer restaging. COMPARISON: 08/15/2020 TECHNIQUE: Approximately 45 minutes after tracer administration, routine, attenuation-corrected Posit cherie Emission Tomography (PET) images were obtained from the level of the base of the skull through th e level of the mid thighs. Tomographic reconstructions are reviewed in coronal, transaxial and sagitt al planes. Non-contrast CT imaging was performed for attenuation correction and localization purpose s only. These images do not constitute a diagnostic-quality CT examination and were not used to diag nose disease independently of the PET images. The blood glucose level was within acceptable limits at the time of FDG administration. *One or more of the following individualized dose reduction techniques were utilized for this examina tion: 1. Automated exposure control. 2. Adjustment of the mA and/or kV according to patient size. 3. Use of iterative reconstruction technique. FINDINGS: There has been significant interval decrease in the size of a previously demonstrated great er tracer avid nodule within the left upper lobe. This now measures approximately 6 mm and demonstrat es SUV similar to surrounding left upper lobe groundglass opacity measuring approximately 2.0. This p reviously measured 1.4 cm with an SUV of 3.6. This is consistent with interval treatment response. There is stable mild increased radiotracer activity within SUV of less than 2.0 along the lateral rig ht lower thoracic pleura, likely inflammatory in etiology. There is no abnormal tracer activity assoc iated with loculated right pleural fluid or mediastinal or hilar lymph nodes. There is no increased radiotracer activity within a previously demonstrated left adrenal nodule or no dular thickening. No new abnormal radiotracer activity is seen. The CT portion of the exam demonstrates significant interval decrease in a previously demonstrated le ft upper lobe nodule. There is no in irregular nodular opacity measuring 6 mm this location, compared to a prior measurement of 1.4 cm. There is surrounding groundglass likely due to radiation change. T here has been slight interval increase in loculated right pleural fluid collections. There are is emp hysema and bilateral lower lobe predominant groundglass opacity likely due to atelectasis. There is c ardiomegaly. There are multiple prominent mediastinal lymph nodes. For reference purposes, there is a dominant right paratracheal lymph node measuring 1.2 cm. This is not significantly changed compared to the prior study. There has been slight interval increase in prevascular lymph nodes, the largest o f which measures 10 mm compared to a prior measurement of 7 mm. There is hepatomegaly. The gallbladder is absent. No pancreatic lesion is seen. The spleen is normal in size. The stomach is unremarkable. There is a stable 1.9 cm left adrenal nodule or nodular thicken ing of the left adrenal gland. There is a 1.8 cm hyperdense lesion within the lateral right kidney, l ikely a hemorrhagic cyst. There is a stable simple cyst within the posterior right kidney measuring 2 .1 cm. There is no bowel obstruction. There is distal colonic diverticulosis. There is urinary bladde r wall thickening. The prostate is enlarged. There is aortobiiliac atherosclerosis. There is a left c ommon and external iliac artery stent. There are degenerative changes throughout the spine. There is no acute or suspicious osseous finding. There is no acute intracranial finding. There is mild inferio r left maxillary sinus mucosal thickening. There is no neck lymphadenopathy. There is a heterogeneous thyroid. IMPRESSION: 1. Significant interval decrease in the size of a 6 mm nodule within the left upper lobe demonstrates an SUV similar to surrounding groundglass opacity of 2.0. This previously measured 1.4 cm within SUV of 3.6. This is consistent with interval treatment response. The surrounding groundglass opacity lik lynn due to radiation changes. 2. Stable mild radiotracer activity within SUV less than 2.0 along the lateral right pleura, likely i nflammatory in etiology. There are stable loculated right pleural fluid collections and findings cons istent with partial right lung resection. 3. Slight interval increase in prevascular lymph nodes. These do not demonstrate significant radiotra cer activity above the blood pool, favoring a reactive rather than neoplastic etiology. The remainder of the mediastinal lymph nodes are unchanged and do not demonstrate abnormal tracer activity. 4. Resolution of previously demonstrated tracer activity within a left adrenal nodule or nodular thic kening. This favors benignity. 5. Stable suspected hemorrhagic cyst and simple cyst within the right kidney. Renal sonography can be performed to confirm benignity. 6. Pulmonary emphysema with multifocal groundglass opacity likely due to atelectasis or scarring. The re are few tiny nodules better characterized on the prior study which are not well seen on this exam. These are too small to characterize with PET. 7. Urinary bladder wall thickening, likely due to chronic outlet obstruction given prostatomegaly. Electronically signed by: Darlene Turner MD (01/02/2021 2:12 PM) [id number]
== END ==
LOC: PETSC 08:20
PROVIDERS: ATTEND Radiology Radiation Oncology
DX: C34.12 Malignant neoplasm of upper lobe, left bronchus or lung (principal); R91.1 Solitary pulmonary nodule; N28.1 Cyst of kidney, acquired; J34.89 Other specified disorders of nose and nasal sinuses; K57.30 Diverticulosis of large intestine without perforation or abscess without bleeding
CPT/HCPCS: 78815; A9552